=== PATIENT | male | born 1940 | race Caucasian/White ===

== ENCOUNTER 2017-08-13 19:27 | Inpatient (IN) | payer MEDICARE, OTHER ==
[~2017-08-13] VITALS: Ht 193 cm; Wt 82.6 kg
[2017-08-13] VITALS (7 sets, daily range): BP systolic 129–147; BP diastolic 58–66; PULSE 101–119; RESP 20–22; TEMP 97.7; O2SAT 96–97
[~2017-08-13 19:27] MED LIST: ASPI325T10 PO; DILT180C PO; METF500 PO; MULT-65 PO; MULT1TAB46 PO; PERC7.5T13 PO; PRAV40TA2 PO; PRED5TAB PO; RAPA8CAP PO; ROPI0.5T PO; SOMA350T PO
[2017-08-13] MEDS: SODIUM CHLOR 0.9% 1000 ML INJ 1,000 ML IV SCH ×2 (20:00→21:53)
[2017-08-13] MEDS ORDERED: SODIUM CHLORIDE 0.9% FLUSH 10 ML FLUSH IV FLUSH PRN ×2 (20:00→22:15)
--- NOTE | 2017-08-13 20:04 | PD ---
HPI Chief Complaint: GI Complaint Time Seen by Provider: 19:56 Travel History International Travel<30 days: No Contact w/Intl Traveler<30days: No Traveled to known affect area: No History of Present Illness HPI The patient is a 77-year-old male that complains of nausea, vomiting and diarrhea since his immune therapy on Monday. He does have a history of stage IV bladder cancer. He has had his bladder removed in 2015. He does feel dehydrated. He is not sure whether or not he is passed any blood in the stool. His last vomiting was 24 hours ago but he is still nauseated. Apparently, the patient was evaluated at [facility] and found not to be a surgical candidate and found not to be a radiation therapy candidate. PFSH Past Medical History Atrial Fibrillation: Yes Cancer: Yes (BLADDER) Cardiovascular Problems: No High Cholesterol: Yes Chemotherapy: Yes Diabetes: Yes Diminished Hearing: No Endocrine: No Genitourinary: Yes (BLADDER CA) Hepatitis: No Hiatal Hernia: No Immune Disorder: No Musculoskeletal: Yes ([place]) Neurologic: No Psychiatric: No Reproductive: No Respiratory: No Immunizations Current: Yes Radiation Therapy: Yes Thyroid Disease: No Past Surgical History Abdominal Surgery: No AICD: No Body Medical Devices: N/A Cardiac Surgery: No Ear Surgery: No Endocrine Surgery: No Eye Surgery: Yes (CATARACTS) Genitourinary Surgery: Yes (BLADDER) Gynecologic Surgery: No Joint Replacement: No Oral Surgery: No Pacemaker: No Thoracic Surgery: No Social History Alcohol Use: Yes (3 GLASSES WINE DAILY) Tobacco Use: No (QUIT 1984) Substance Use: No Allergies-Medications (Allergen,Severity, Reaction): Coded Allergies: No Known Allergies (Unverified Adverse Reaction, Unknown, 08/13/17) Reported Meds & Prescriptions Reported Meds & Active Scripts Active Review of Systems Except as stated in HPI: all other systems reviewed are Neg Physical Exam Narrative GENERAL: The patient is at least moderately dehydrated, alert, oriented 3 in moderate apparent distress with his abdominal discomfort. His vital signs show heart rate of 119 with respirations 22 but otherwise normal. SKIN: Focused skin assessment warm/dry. HEAD: Atraumatic. Normocephalic. EYES: Pupils equal and round. No scleral icterus. No injection or drainage. ENT: No nasal bleeding or discharge. Mucous membranes pink and moist. NECK: Trachea midline. No JVD. CARDIOVASCULAR: Regular rate and rhythm. No murmur appreciated. RESPIRATORY: No accessory muscle use. Clear to auscultation. Breath sounds equal bilaterally. GASTROINTESTINAL: Abdomen soft, non-tender, nondistended. Hepatic and splenic margins not palpable. No guarding or rebound is present. MUSCULOSKELETAL: No obvious deformities. No clubbing. No cyanosis. No edema. NEUROLOGICAL: Awake and alert. No obvious cranial nerve deficits. Motor grossly within normal limits. Normal speech. PSYCHIATRIC: Appropriate mood and affect; insight and judgment normal. Data Data Last Documented VS Vital Signs Date Time Temp Pulse Resp B/P (MAP) Pulse Ox O2 Delivery O2 Flow Rate FiO2 08/13/17 22:39 105 20 147/66 (93) 97 08/13/17 20:32 Room Air 08/13/17 19:36 97.7 Orders Orders Complete Blood Count With Diff (08/13/17 19:57) Comprehensive Metabolic Panel (08/13/17 19:57) Lipase (08/13/17 19:57) Urinalysis - C+S If Indicated (08/13/17 19:57) Iv Access Insert/Monitor (08/13/17 19:57) Ecg Monitoring (08/13/17 19:57) Oximetry (08/13/17 19:57) Sodium Chloride 0.9% Flush (Ns Flush) (08/13/17 20:00) Sodium Chlor 0.9% 1000 Ml Inj (Ns 1000 M (08/13/17 20:00) Urine Culture (08/13/17 20:25) Ct Abd/Pel W/O Iv Contrast (08/13/17 19:57) Lorazepam Inj (Ativan Inj) (08/13/17 21:45) Place In Observation (08/13/17 ) Vital Signs (Adult) Q4H (08/13/17 22:15) Activity Oob With Assistance (08/13/17 22:15) Bedside Glucose BALJINDER.CSUGAR (08/13/17 22:15) Intake + Output BALJINDER.QSHIFT (08/13/17 22:15) Diet Regular Basic (08/14/17 Breakfast) Sodium Chlor 0.9% 1000 Ml Inj (Ns 1000 M (08/13/17 22:15) Sodium Chloride 0.9% Flush (Ns Flush) (08/13/17 22:15) Sodium Chloride 0.9% Flush (Ns Flush) (08/14/17 09:00) Acetaminophen (Tylenol) (08/13/17 22:15) Ondansetron Inj (Zofran Inj) (08/13/17 22:15) Metoclopramide Inj (Reglan Inj) (08/13/17 22:15) Prochlorperazine Supp (Compazine Supp) (08/13/17 22:15) Basic Metabolic Panel (Bmp) (08/14/17 06:00) Complete Blood Count With Diff (08/14/17 06:00) Case Management Consult (08/13/17 22:15) Enoxaparin Inj (Lovenox Inj) (08/13/17 23:00) Naloxone Inj (Narcan Inj) (08/13/17 22:15) Docusate Sodium-Senna (Merna-Colace) (08/14/17 09:00) Magnesium Hydroxide Liq (Milk Of Magnesi (08/13/17 22:15) Sennosides (Senokot) (08/13/17 22:15) Bisacodyl Supp (Dulcolax Supp) (08/13/17 22:15) Lactulose Liq (Lactulose Liq) (08/13/17 22:15) Admit Order (Ed Use Only) (08/13/17 22:40) Labs Laboratory Tests Test 08/13/17 20:25 White Blood Count 12.8 TH/MM3 Red Blood Count 3.13 MIL/MM3 Hemoglobin 8.9 GM/DL Hematocrit 26.9 % Mean Corpuscular Volume 86.0 FL Mean Corpuscular Hemoglobin 28.5 PG Mean Corpuscular Hemoglobin Concent 33.1 % Red Cell Distribution Width 14.9 % Platelet Count 448 TH/MM3 Mean Platelet Volume 6.9 FL Neutrophils (%) (Auto) 83.7 % Lymphocytes (%) (Auto) 7.0 % Monocytes (%) (Auto) 8.8 % Eosinophils (%) (Auto) 0.4 % Basophils (%) (Auto) 0.1 % Neutrophils # (Auto) 10.7 TH/MM3 Lymphocytes # (Auto) 0.9 TH/MM3 Monocytes # (Auto) 1.1 TH/MM3 Eosinophils # (Auto) 0.1 TH/MM3 Basophils # (Auto) 0.0 TH/MM3 CBC Comment AUTO DIFF Differential Comment AUTO DIFF CONFIRMED Platelet Estimate NORMAL Platelet Morphology Comment NORMAL Red Cell Morphology Comment NORMAL Urine Color YELLOW Urine Turbidity SLIGHT Urine pH 6.0 Urine Specific [place] 1.012 Urine Protein 30 mg/dL Urine Glucose (UA) NEG mg/dL Urine Ketones NEG mg/dL Urine Occult Blood MOD Urine Nitrite NEG Urine Bilirubin NEG Urine Leukocyte Esterase LARGE Urine RBC 0-3 /hpf Urine WBC 20-24 /hpf Urine WBC Clumps OCC Urine Squamous Epithelial Cells 0-5 /hpf Urine Bacteria MANY /hpf Urine Mucus OCC /lpf Microscopic Urinalysis Comment CULTURE INDICATED Blood Urea Nitrogen 73 MG/DL Creatinine 2.10 MG/DL Random Glucose 123 MG/DL Total Protein 7.7 GM/DL Albumin 3.0 GM/DL Calcium Level 8.9 MG/DL Alkaline Phosphatase 52 U/L Aspartate Amino Transf (AST/SGOT) 7 U/L Alanine Aminotransferase (ALT/SGPT) 17 U/L Total Bilirubin 0.3 MG/DL Sodium Level 136 MEQ/L Potassium Level 4.2 MEQ/L Chloride Level 107 MEQ/L Carbon Dioxide Level 18.9 MEQ/L Anion Gap 10 MEQ/L Estimat Glomerular Filtration Rate 31 ML/MIN Lipase 233 U/L [facility] Medical Decision Making Medical Screen Exam Complete: Yes Emergency Medical Condition: Yes Medical Record Reviewed: Yes Differential Diagnosis Immune therapy side effect, dehydration, electrolyte disorder, small bowel obstruction-unlikely, pancreatitis, gastroenteritis Narrative Course The patient may have a gastroenteritis. He does have dehydration. I discussed the patient with Dr. Martino. Dr. Martino longer practices at [place] but he suggested admitting the patient and giving him antiemetics and fluids and then when discharged, he can follow-up in Dr. Martino's office. It is unlikely that this is immune therapy side effect, this was his first dose. Physician Communication Physician Communication I discussed the patient with Dr. Corey, the patient will be admitted to her. I also discussed the patient with Dr. Martino. Diagnosis Primary Impression: Intractable vomiting with nausea Additional Impression: Moderate dehydration Admitting Information Admitting Physician Requests: Moy Syed MD Aug 13, 2017 20:04
[2017-08-13 20:31] LABS: BLOOD, URINE MOD (NEG); GLUCOSE,URINE NEG (NEG); KETONE, URINE NEG (NEG); NITRITE,URINE NEG (NEG)
[2017-08-13 20:36] LABS: URINE COLOR YELLOW (YELLW/STRAW)
[2017-08-13 20:37] LABS: BACTERIA, URINE MANY /hpf; RBC, URINE 0-3 /hpf (0-3); SQUAMOUS EPITHELIAL CELL URINE 0-5 /hpf (0-5)
[2017-08-13 20:38] LABS: CHLORIDE 107 MEQ/L (98-107); COMMENT (UR) CULTURE INDICATED; CULTURE IF INDICATED CULTURE INDICATED; MUCUS URINE OCC /lpf (OCC); POTASSIUM 4.2 MEQ/L (3.5-5.1); SODIUM (NA) 136 MEQ/L (136-145)
[2017-08-13 20:42] LABS: ANION GAP 10 MEQ/L (5-15); BICARBONATE 18.9 MEQ/L (21.0-32.0); BLOOD UREA NITROGEN 73 MG/DL (7-18)
[2017-08-13 20:45] LABS: ALT (GPT) 17 U/L (12-78); AST (GOT) 7 U/L (15-37); AUTOMATED NEUTROPHIL # 10.7 TH/MM3 (1.8-7.7); BASOPHIL % 0.1 % (0.0-2.0); EOSINOPHIL # 0.1 TH/MM3 (0-0.4); EOSINOPHIL % 0.4 % (0.0-4.0); GLOMERULAR FILTRATION RATE 31 ML/MIN (>89); HEMATOCRIT 26.9 % (39.0-51.0); LYMPHOCYTE # 0.9 TH/MM3 (1.0-4.8); MEAN CORPUSCULAR HEMOGLOBIN 28.5 PG (27.0-34.0); MEAN CORPUSCULAR HGB CONC 33.1 % (32.0-36.0); MONO % 8.8 % (0.0-8.0); NEUT % 83.7 % (16.0-70.0); PLATELET COUNT 448 TH/MM3 (150-450); RED BLOOD COUNT 3.13 MIL/MM3 (4.50-5.90); RED CELL DISTRIBUTION WIDTH 14.9 % (11.6-17.2); WHITE BLOOD COUNT 12.8 TH/MM3 (4.0-11.0)
[2017-08-13 20:46] LABS: TOTAL BILIRUBIN ADULT 0.3 MG/DL (0.2-1.0)
[2017-08-13 20:48] LABS: ALKALINE PHOSPHATASE 52 U/L (45-117)
[2017-08-13 20:51] LABS: HEMO FLAGS AUTO DIFF
[2017-08-13 21:16] LABS: PLATELET ESTIMATE SMEAR NORMAL (NORMAL); PLATELET MORPHOLOGY NORMAL (NORMAL); SCAN/DIFF AUTO DIFF CONFIRMED
--- NOTE | 2017-08-13 21:43 | RADRPT ---
EXAM DATE/TIME: 08/13/2017 21:04 [facility] COMPARISON: No previous studies available for comparison. INDICATIONS : Nausea. Vomiting. Diarrhea. ORAL CONTRAST: No oral contrast ingested. RADIATION DOSE: 11.31 CTDIvol (mGy) MEDICAL HISTORY : Renal insufficiency. Carcinoma, bladder. Diabetes mellitus type 2.Hypertension. SURGICAL HISTORY : Urostomy. ENCOUNTER: Initial ACUITY: 2 days PAIN SCALE: 2/10 LOCATION: Bilateral abdomen. TECHNIQUE: Volumetric scanning of the abdomen and pelvis was performed. Using automated exposure control and ad justment of the mA and/or kV according to patient size, radiation dose was kept as low as reasonably achievable to obtain optimal diagnostic quality images. DICOM format image data is available electro nically for review and comparison. FINDINGS: LOWER LUNGS: There is a 5 mm nodule in the right lower lobe. LIVER: Homogeneous density without lesion. There is no dilation of the biliary tree. No calcified gallston es. SPLEEN: Normal size without lesion. PANCREAS: Within normal limits. KIDNEYS: Normal in size and shape. There is no mass or stone. There is fullness of the collecting systems sadie aterally with bilateral hydroureter extending to the right lower quadrant urinary conduit. ADRENAL GLANDS: Within normal limits. VASCULAR: There is no aortic aneurysm. There is severe atherosclerotic disease. BOWEL/MESENTERY: A small hiatal hernia is present. The small bowel demonstrates no acute finding. Stable line is prese nt in the mid to distal small bowel. There is a large volume of stool throughout the colon area and a bnormal soft tissue density masslike structure is present in the right pelvis abutting the anterior a nd right lateral lott of the upper rectum and abutting the sigmoid colon and right obturator internu s. This measures at least 5.6 x 3.7 cm. Additionally, there appears to be fistulous connections betwe en segments of the sigmoid colon and the rectum. No free air or free fluid. ABDOMINAL WALL: There is a right lower quadrant urinary conduit with associated small fat containing peristomal herni a. A small periumbilical fat containing hernia is also present. RETROPERITONEUM: There is no lymphadenopathy. BLADDER: Surgically absent. REPRODUCTIVE: Surgically absent. INGUINAL: There is no lymphadenopathy or significant hernia. MUSCULOSKELETAL: There are degenerative changes of the lumbar spine. No lytic or blastic lesion. CONCLUSION: 1. Abnormal soft tissue mass in the inferior right pelvis measuring at least 5.6 cm. It abuts the rec carter, sigmoid colon, and right obturator internus. This is associated with a fistulous connection betw een the sigmoid colon and rectum. This finding could represent a local recurrence or metastatic disea se related to the patient's known bladder cancer. Additionally, it could be sequela from this prior i nflammatory process or surgery. Correlating with prior studies would be helpful. Some of this tissue is amenable to percutaneous biopsy if histologic diagnosis is needed. 2. There is a 6 mm nodule in the right lower lobe. Suggest correlating with any prior imaging studies . Ishaan Robles MD on August 13, 2017 at 21:32 Board Certified Radiologist. This report was verified electronically.
[2017-08-13] MEDS ORDERED: LORazepam 2 MG/ML VIAL IV PUSH ONE (21:45)
[2017-08-13] MEDS ORDERED: NALOXONE HCL 0.4 MG/ML AMP IV PUSH PRN (22:15)
[2017-08-13] MEDS ORDERED: ACETAMINOPHEN 325 MG TAB PO PRN (22:15)
[2017-08-13] MEDS ORDERED: LACTULOSE SYRUP 20 GM/30 ML CUP PO PRN (22:15)
[2017-08-13] MEDS ORDERED: MAGNESIUM HYDROXIDE SUSP 30 ML CUP PO PRN (22:15)
[2017-08-13] MEDS ORDERED: ONDANSETRON HCL 4 MG/2 ML VIAL IVP PRN (22:15)
[2017-08-13] MEDS ORDERED: PROCHLORPERAZINE 25 MG SUPP RECTAL PRN (22:15)
[2017-08-13] MEDS ORDERED: BISACODYL 10 MG SUPP RECTAL PRN (22:15)
[2017-08-13] MEDS ORDERED: SENNOSIDES 8.6 MG TAB PO PRN (22:15)
[2017-08-13] MEDS ORDERED: METOCLOPRAMIDE HCL 10 MG/2 ML VIAL IV PUSH PRN (22:15)
[2017-08-14] MEDS: SODIUM CHLOR 0.9% 1000 ML INJ 1,000 ML IV SCH ×3 (01:14→18:47)
[2017-08-14] MEDS: ENOXAPARIN SODIUM 30 MG/0.3 ML SYRINGE SQ SCH ×2 (01:36→21:37)
[2017-08-14 06:18] LABS: AUTOMATED NEUTROPHIL # 8.3 TH/MM3 (1.8-7.7); BASOPHIL % 0.2 % (0.0-2.0); EOSINOPHIL # 0.1 TH/MM3 (0-0.4); EOSINOPHIL % 0.5 % (0.0-4.0); HEMATOCRIT 24.6 % (39.0-51.0); HEMO FLAGS DIFF FINAL; LYMPH % 10.1 % (9.0-44.0); LYMPHOCYTE # 1.1 TH/MM3 (1.0-4.8); MEAN CELL VOLUME 87.1 FL (80.0-100.0); MEAN CORPUSCULAR HEMOGLOBIN 28.3 PG (27.0-34.0); MEAN CORPUSCULAR HGB CONC 32.5 % (32.0-36.0); MONO % 10.8 % (0.0-8.0); NEUT % 78.4 % (16.0-70.0); PLATELET COUNT 396 TH/MM3 (150-450); RED BLOOD COUNT 2.83 MIL/MM3 (4.50-5.90); RED CELL DISTRIBUTION WIDTH 14.8 % (11.6-17.2); WHITE BLOOD COUNT 10.6 TH/MM3 (4.0-11.0)
[2017-08-14 06:24] LABS: BICARBONATE 18.6 MEQ/L (21.0-32.0); POTASSIUM 4.7 MEQ/L (3.5-5.1)
[2017-08-14] MEDS: DOCUSATE SODIUM 50 MG/SENNA 8.6 MG TAB PO SCH ×2 (07:40→21:30)
[2017-08-14] MEDS: SODIUM CHLORIDE 0.9% FLUSH 10 ML FLUSH IV FLUSH SCH ×2 (07:41→21:29)
[2017-08-14 08:00] VITALS: BP 148/65; PULSE 110; RESP 14; TEMP 98.7; O2SAT 95
--- NOTE | 2017-08-14 09:38 | HHI.HP ---
HPI Service [facility] Primary Care Physician Sandor Atkins M.D. Admission Diagnosis intractable vomiting, moderate dehydration Diagnoses: Chief Complaint: N/V/D Travel History International Travel<30 Days: No Contact w/Intl Traveler <30 Da: No Traveled to Known Affected Are: No History of Present Illness 77-year-old white male who was admitted for dehydration secondary to gastroenteritis. Patient was in his usual state of health until about 3 days ago 2 hours after his first chemotherapy session he developed nausea vomiting and loose stools. states that his symptoms persisted for a whole 3 days and then decided to bring to the emergency room last night. Patient denies being on antibiotics in the last 3 months. thinks that he is slightly confused. Since admission, the patient has still had multiple bowel movements that are "runny". However his states that he was able to eat his breakfast this morning which is an improvement. Patient reports having some mild abdominal discomfort. He does have a history of bladder cancer with a urostomy, no changes in urinary output consistency per patient and . Patient handles the urostomy changes himself. Pt denies any kaye fevers or cold sweats. Review of Systems Except as stated in HPI: all other systems reviewed are Neg Past Family Social History Past Medical History Polymyalgia, bladder cancer, Past Surgical History Bladder cancer, urostomy, cataract surgery Allergies: Coded Allergies: No Known Allergies (Unverified Adverse Reaction, Unknown, 08/13/17) Family History Hypertension Social History Previous smoking history up until 1984, drinks alcohol daily up to 3 glasses of wine, denies illicit drug use per records Physical Exam Vital Signs Vital Signs Date Time Temp Pulse Resp B/P (MAP) Pulse Ox O2 Delivery O2 Flow Rate FiO2 08/13/17 23:56 108 20 146/63 (90) 96 08/13/17 23:55 97.7 101 20 129/60 (83) 96 08/13/17 22:39 105 20 147/66 (93) 97 08/13/17 21:03 106 20 145/63 (90) 97 08/13/17 20:32 96 Room Air 08/13/17 19:59 113 20 138/58 (84) 97 Room Air 08/13/17 19:36 97.7 119 22 134/63 (86) 96 Physical Exam VS: Afebrile GENERAL: Elderly white male, well-nourished, lying in bed, awake, alert, no acute distress SKIN: Warm and dry. EYES: No scleral icterus. No injection or drainage. ENT: No nasal bleeding or discharge. Mucous membranes pink and moist. CARDIOVASCULAR: Regular rate and rhythm. no murmurs RESPIRATORY: No accessory muscle use. Clear to auscultation. Breath sounds equal bilaterally. GASTROINTESTINAL: Abdomen soft, non-tender, nondistended. Has a urostomy bag on his right side with normal colored urine, no gross hematuria noted. Extremities: No clubbing, cyanosis, or edema. No obvious deformities. MUSCULOSKELETAL: Extremities without clubbing, cyanosis, or edema. No obvious deformities. grossly intact ROM with 5/5 strength in upper and lower extremities proximally NEUROLOGICAL: Awake and alert. No obvious cranial nerve deficits. No facial droop nor slurred speech noted. PSYCHIATRIC: Appropriate mood and affect; insight and judgment normal. Is oriented to person and place, only partially oriented to time but eventually does get the day of the week and month right, off by 3 years. Understands that he is hospitalized for his symptoms. Laboratory Laboratory Tests Test 08/13/17 20:25 08/14/17 04:53 White Blood Count 12.8 10.6 Red Blood Count 3.13 2.83 Hemoglobin 8.9 8.0 Hematocrit 26.9 24.6 Mean Corpuscular Volume 86.0 87.1 Mean Corpuscular Hemoglobin 28.5 28.3 Mean Corpuscular Hemoglobin Concent 33.1 32.5 Red Cell Distribution Width 14.9 14.8 Platelet Count 448 396 Mean Platelet Volume 6.9 7.3 Neutrophils (%) (Auto) 83.7 78.4 Lymphocytes (%) (Auto) 7.0 10.1 Monocytes (%) (Auto) 8.8 10.8 Eosinophils (%) (Auto) 0.4 0.5 Basophils (%) (Auto) 0.1 0.2 Neutrophils # (Auto) 10.7 8.3 Lymphocytes # (Auto) 0.9 1.1 Monocytes # (Auto) 1.1 1.1 Eosinophils # (Auto) 0.1 0.1 Basophils # (Auto) 0.0 0.0 CBC Comment AUTO DIFF DIFF FINAL Differential Comment AUTO DIFF CONFIRMED Platelet Estimate NORMAL Platelet Morphology Comment NORMAL Red Cell Morphology Comment NORMAL Urine Color YELLOW Urine Turbidity SLIGHT Urine pH 6.0 Urine Specific [place] 1.012 Urine Protein 30 Urine Glucose (UA) NEG Urine Ketones NEG Urine Occult Blood MOD Urine Nitrite NEG Urine Bilirubin NEG Urine Leukocyte Esterase LARGE Urine RBC 0-3 Urine WBC 20-24 Urine WBC Clumps OCC Urine Squamous Epithelial Cells 0-5 Urine Bacteria MANY Urine Mucus OCC Microscopic Urinalysis Comment CULTURE INDICATED Blood Urea Nitrogen 73 55 Creatinine 2.10 1.50 Random Glucose 123 97 Total Protein 7.7 Albumin 3.0 Calcium Level 8.9 8.5 Alkaline Phosphatase 52 Aspartate Amino Transf (AST/SGOT) 7 Alanine Aminotransferase (ALT/SGPT) 17 Total Bilirubin 0.3 Sodium Level 136 143 Potassium Level 4.2 4.7 Chloride Level 107 115 Carbon Dioxide Level 18.9 18.6 Anion Gap 10 9 Estimat Glomerular Filtration Rate 31 46 Lipase 233 Date/Time Source Procedure Growth Status 08/13/17 20:25 Urine Clean Catch Urine Culture Pending Received Result Diagram: 08/14/17 0453 08/14/17 0453 Caprini VTE Risk Assessment Caprini VTE Risk Assessment: Mod/High Risk (score >= 2) Caprini Risk Assessment Model Point Value = 1 Point Value = 2 Point Value = 3 Point Value = 5 Age 41-60 Minor surgery BMI > 25 kg/m2 Swollen legs Varicose veins or History of unexplained or recurrent spontaneous Oral contraceptives or hormone replacement Sepsis (< 1 month) Serious lung disease, including pneumonia (< 1 month) Abnormal pulmonary function Acute myocardial infarction Congestive heart failure (< 1 month) History of inflammatory bowel disease Medical patient at bed rest Age 61-74 Arthroscopic surgery Major open surgery (> 45 min) Laparoscopic surgery (> 45 min) Malignancy Confined to bed (> 72 hours) Immobilizing plaster cast Central venous access Age >= 75 History of VTE Family history of VTE Factor V Leiden Prothrombin [id number] Lupus anticoagulant Anticardiolipin antibodies Elevated serum homocysteine Heparin-induced thrombocytopenia Other congenital or acquired thrombophilia Stroke (< 1 month) Elective arthroplasty Hip, pelvis, or leg fracture Acute spinal cord injury (< 1 month) Prophylaxis Regimen Total Risk Factor Score Risk Level Prophylaxis Regimen 0-1 Low Early ambulation 2 Moderate Order ONE of the following: *Sequential Compression Device (SCD) *Heparin 5000 units SQ BID 3-4 Higher Order ONE of the following medications: *Heparin 5000 units SQ TID *Enoxaparin/Lovenox 40 mg SQ daily (WT < 150 kg, CrCl > 30 mL/min) *Enoxaparin/Lovenox 30 mg SQ daily (WT < 150 kg, CrCl > 10-29 mL/min) *Enoxaparin/Lovenox 30 mg SQ BID (WT < 150 kg, CrCl > 30 mL/min) AND/OR *Sequential Compression Device (SCD) 5 or more Highest Order ONE of the following medications: *Heparin 5000 units SQ TID (Preferred with Epidurals) *Enoxaparin/Lovenox 40 mg SQ daily (WT < 150 kg, CrCl > 30 mL/min) *Enoxaparin/Lovenox 30 mg SQ daily (WT < 150 kg, CrCl > 10-29 mL/min) *Enoxaparin/Lovenox 30 mg SQ BID (WT < 150 kg, CrCl > 30 mL/min) AND *Sequential Compression Device (SCD) Assessment and Plan Assessment and Plan Nausea vomiting diarrhea - Most likely viral gastroenteritis with a partial component of chemotherapy although that is unlikely at this point - Checking C. difficile, if negative will proceed with Imodium - Diet as tolerated, Zofran as needed for nausea SERA - Improving since admission, trend renal function, may consider discontinuing IV fluids if by mouth intake is adequate Physician Certification 2 Midnight Certification Type: Admission for Inpatient Services Order for Inpatient Services The services are ordered in accordance with Medicare regulations or non- Medicare payer requirements, as applicable. In the case of services not specified as inpatient-only, they are appropriately provided as inpatient services in accordance with the 2-midnight benchmark. Estimated LOS (days): 2 2 days is the estimated time the patient will need to remain in the hospital, assuming treatment plan goals are met and no additional complications. Post-Hospital Plan: Home Jareth Trivedi MD Aug 14, 2017 09:37
[2017-08-14] MEDS ORDERED: ONDANSETRON HCL 4 MG/2 ML VIAL IV PUSH PRN (09:45)
[2017-08-14 12:00] VITALS: BP 143/67; PULSE 101; RESP 14; TEMP 97.1; O2SAT 97
[2017-08-14 16:00] VITALS: BP 141/67; PULSE 101; RESP 16; TEMP 98.5; O2SAT 96
[2017-08-14 20:00] VITALS: BP 138/64; PULSE 96; RESP 18; TEMP 97.5; O2SAT 97
[2017-08-14] MEDS ORDERED: ENOXAPARIN SODIUM 30 MG/0.3 ML SYRINGE SQ SCH (20:00)
[2017-08-15] VITALS: BP 140/62; PULSE 94; RESP 18; TEMP 98.9; O2SAT 97
[2017-08-15] MEDS ORDERED: LORazepam 1 MG TAB PO PRN (01:45)
[2017-08-15] MEDS ORDERED: LORazepam 2 MG TAB PO PRN (01:45)
[2017-08-15] MEDS ORDERED: LORazepam 2 MG/ML VIAL IV PUSH PRN ×3 (01:45)
[2017-08-15] MEDS ORDERED: FLUMAZENIL 0.5 MG/5 ML VIAL IV PUSH PRN (01:45)
[2017-08-15] MEDS: LORazepam 2 MG/ML VIAL IV PUSH PRN ×2 (02:40→12:21)
[2017-08-15 06:38] LABS: AUTOMATED NEUTROPHIL # 7.4 TH/MM3 (1.8-7.7); BASOPHIL # 0.1 TH/MM3 (0-0.2); BASOPHIL % 0.8 % (0.0-2.0); EOSINOPHIL # 0.1 TH/MM3 (0-0.4); EOSINOPHIL % 0.6 % (0.0-4.0); HEMATOCRIT 25.5 % (39.0-51.0); LYMPH % 11.4 % (9.0-44.0); LYMPHOCYTE # 1.1 TH/MM3 (1.0-4.8); MEAN CELL VOLUME 87.1 FL (80.0-100.0); MEAN CORPUSCULAR HEMOGLOBIN 27.6 PG (27.0-34.0); MEAN CORPUSCULAR HGB CONC 31.7 % (32.0-36.0); NEUT % 76.2 % (16.0-70.0); PLATELET COUNT 432 TH/MM3 (150-450); RED BLOOD COUNT 2.92 MIL/MM3 (4.50-5.90); RED CELL DISTRIBUTION WIDTH 14.8 % (11.6-17.2); WHITE BLOOD COUNT 9.8 TH/MM3 (4.0-11.0)
[2017-08-15 06:41] LABS: HEMO FLAGS DIFF FINAL
[2017-08-15 07:39] LABS: MAGNESIUM 2.2 MG/DL (1.5-2.5); POTASSIUM 3.9 MEQ/L (3.5-5.1)
[2017-08-15 08:00] VITALS: BP 160/72; PULSE 90; RESP 20; TEMP 97.4
[2017-08-15] MEDS ORDERED: FOLIC ACID 1 MG TAB PO SCH (09:00)
[2017-08-15] MEDS ORDERED: THIAMINE HCL 100 MG TAB PO SCH (09:00)
[2017-08-15] MEDS ORDERED: MULTIVITAMINS/MINERALS THERAPEUTIC TAB PO SCH (09:00)
[2017-08-15] MEDS: DOCUSATE SODIUM 50 MG/SENNA 8.6 MG TAB PO SCH (09:00)
[2017-08-15] MEDS: SODIUM CHLORIDE 0.9% FLUSH 10 ML FLUSH IV FLUSH SCH ×2 (09:11→20:24)
[2017-08-15] MEDS: SODIUM CHLOR 0.9% 1000 ML INJ 1,000 ML IV SCH ×2 (09:21→14:15)
[2017-08-15 11:42] VITALS: BP 160/74; PULSE 102; RESP 20; TEMP 99.2; O2SAT 98
[2017-08-15] MEDS: cefTRIAXone INJ 1,000 MG in SODIUM CHLORIDE 0.9% INJ 100 ML IV SCH (13:18)
[2017-08-15 16:00] VITALS: BP 181/79; PULSE 99; RESP 20; TEMP 101; O2SAT 98
--- NOTE | 2017-08-15 17:03 | HHI.PR ---
Subjective Remarks Patient has been confused, has tried to get out of bed multiple times and was placed in soft restraints. Nurse tells me that his girlfriend at bedside is untied to soft restraints several times and has been counseled by nursing staff not to do so. I discussed further history with the patient's girlfriend at bedside. Patient apparently got his first dose of chemotherapy last Monday and has been confused since then. He does not have good balance at baseline and has a walker but does not use it. He grabs onto furniture to help him with his balance at home. Normally he is alert and oriented so that the confusion is a departure from baseline for him. Patient himself denies any pain. He has had numerous loose stools today. No nausea or vomiting. Objective Vitals Vital Signs Date Time Temp Pulse Resp B/P (MAP) Pulse Ox O2 Delivery O2 Flow Rate FiO2 08/15/17 16:00 101.0 99 20 181/79 (113) 98 08/15/17 11:42 99.2 102 20 160/74 (102) 98 08/15/17 08:00 97.4 90 20 160/72 (101) 08/15/17 00:00 98.9 94 18 140/62 (88) 97 08/14/17 20:00 97.5 96 18 138/64 (88) 97 I/O 08/14/17 08/14/17 08/14/17 08/15/17 08/15/17 08/15/17 07:00 15:00 23:00 07:00 15:00 23:00 Intake Total 684 ml 222 ml 1180 ml 2420 ml Output Total 1250 ml 350 ml 350 ml 600 ml 650 ml Balance -566 ml -128 ml -350 ml 580 ml 1770 ml Intake Oral 240 ml 222 ml 680 ml 920 ml IV Total 444 ml 500 ml 1500 ml Output Urine Total 1250 ml 350 ml 350 ml 600 ml 650 ml # Voids 2 1 4 # Bowel Movements 6 4 4 3 5 2 Result Diagram: 08/15/1744908/15/17449 Objective Remarks GENERAL: Chronically ill-appearing elderly male laying in bed in no apparent distress. SKIN: Warm and dry. HEAD: Normocephalic. EYES: No scleral icterus. No injection or drainage. NECK: Supple, trachea midline. No JVD or lymphadenopathy. CARDIOVASCULAR: Regular rate and rhythm without murmurs, gallops, or rubs. RESPIRATORY: Breath sounds equal bilaterally. No accessory muscle use. GASTROINTESTINAL: Abdomen soft, non-tender, nondistended. EXTREMITIES: No cyanosis, or edema. NEUROLOGICAL: Awake, alert, and oriented only to self. Confused. Non-focal. A/P Assessment and Plan -Diarrhea, fever, vomiting as well in a patient with stage IV bladder cancer received first dose of chemotherapy last Monday - patient's oncologist is Dr. Martino. CT shows soft tissue mass in the inferior right pelvis measuring 5.6 cm and there is a fistulous connection between the sigmoid colon and the rectum. Patient has a urostomy. Urinalysis is abnormal on culture grew Escherichia coli. Continue Rocephin IV. Start Flagyl IV. Check C. difficile. No further vomiting since admission but he continues to have copious loose stools. I will touch base with his oncologist tomorrow. -Acute metabolic encephalopathy. Confusion since his first dose of chemotherapy last Monday. Continue soft restraints. If does not improve we'll need to check head CT. -Acute kidney injury, improving with IV fluid hydration. -Escherichia coli UTI continue Rocephin. -DVT px - SCDs Maci Beatty MD Aug 15, 2017 17:03
[2017-08-15 20:00] VITALS: BP 172/76; PULSE 87; RESP 18; TEMP 96.6; O2SAT 94
[2017-08-15] MEDS: ENOXAPARIN SODIUM 30 MG/0.3 ML SYRINGE SQ SCH (23:00)
[2017-08-16] VITALS: BP 176/72; PULSE 90; RESP 18; TEMP 97.7; O2SAT 96
[2017-08-16] MEDS ORDERED: HALOPERIDOL LACTATE 5 MG/ML AMP IM ONE (02:00)
--- NOTE | 2017-08-16 03:43 | RADRPT ---
EXAM DATE/TIME: 08/16/2017 02:56 [facility] COMPARISON: No previous studies available for comparison. INDICATIONS : Altered mental status. RADIATION DOSE: 58.25 CTDIvol (mGy) MEDICAL HISTORY : Hypertension. Diabetes mellitus type 2. Carcinoma, bladder. SURGICAL HISTORY : Urostomy. ENCOUNTER: Initial ACUITY: 1 day PAIN SCALE: 0/10 LOCATION: cranial TECHNIQUE: Multiple contiguous axial images were obtained of the head. Using automated exposure control and adj ustment of the mA and/or kV according to patient size, radiation dose was kept as low as reasonably a chievable to obtain optimal diagnostic quality images. DICOM format image data is available electro nically for review and comparison. FINDINGS: CEREBRUM: The ventricles are normal for age. No evidence of midline shift, mass lesion, hemorrhage or acute in farction. No extra-axial fluid collections are seen. POSTERIOR FOSSA: The cerebellum and brainstem are intact. The 4th ventricle is midline. The cerebellopontine angle i s unremarkable. EXTRACRANIAL: The visualized portion of the orbits is intact. SKULL: The calvaria is intact. No evidence of skull fracture. CONCLUSION: Normal examination. Gio Catalan MD on August 16, 2017 at 3:42 Board Certified Radiologist. This report was verified electronically.
[2017-08-16 05:17] LABS: C. DIFF EPI 027 PRESUMPTIVE NEGATIVE (NEGATIVE)
[2017-08-16 07:50] VITALS: BP 151/67; PULSE 95; RESP 20; TEMP 97.7; O2SAT 97
[2017-08-16 08:56] LABS: AUTOMATED NEUTROPHIL # 9.5 TH/MM3 (1.8-7.7); EOSINOPHIL % 0.4 % (0.0-4.0); HEMATOCRIT 26.8 % (39.0-51.0); LYMPH % 7.1 % (9.0-44.0); LYMPHOCYTE # 0.8 TH/MM3 (1.0-4.8); MEAN CELL VOLUME 87.1 FL (80.0-100.0); MEAN CORPUSCULAR HEMOGLOBIN 27.7 PG (27.0-34.0); MEAN CORPUSCULAR HGB CONC 31.8 % (32.0-36.0); MONO % 8.5 % (0.0-8.0); PLATELET COUNT 466 TH/MM3 (150-450); RED BLOOD COUNT 3.08 MIL/MM3 (4.50-5.90); RED CELL DISTRIBUTION WIDTH 15.1 % (11.6-17.2); WHITE BLOOD COUNT 11.2 TH/MM3 (4.0-11.0)
[2017-08-16 09:04] LABS: HEMO FLAGS DIFF FINAL
[2017-08-16 09:51] LABS: BICARBONATE 16.7 MEQ/L (21.0-32.0); POTASSIUM 3.8 MEQ/L (3.5-5.1)
[2017-08-16] MEDS: SODIUM CHLORIDE 0.9% FLUSH 10 ML FLUSH IV FLUSH SCH ×2 (10:35→20:37)
[2017-08-16] MEDS: metroNIDAZOLE 500 MG INJ 100 ML IV SCH ×2 (10:38→18:28)
--- NOTE | 2017-08-16 10:56 | HHI.PR ---
Subjective Remarks Patient less confused this morning. Contineus to have loose liquid stools. Denies pain or dyspnea. Did not sleep well last night. c dif negative. head ct obtained overnight - negative. Home meds reviewed with - apparently he takes percocet 10 (up to 2 at a time) AND lortab as well as ativan. D/w pts girlfriend at bedside that she should control his medications when patient confused, advised all three can cause confusion, recommend DC lortab, and use only 1 percocet at a time. Objective Vitals Vital Signs Date Time Temp Pulse Resp B/P (MAP) Pulse Ox O2 Delivery O2 Flow Rate FiO2 08/16/17 00:00 97.7 90 18 176/72 (106) 96 08/15/17 20:00 96.6 87 18 172/76 (108) 94 08/15/17 16:00 101.0 99 20 181/79 (113) 98 08/15/17 11:42 99.2 102 20 160/74 (102) 98 I/O 08/15/17 08/15/17 08/15/17 08/16/17 08/16/17 08/16/17 07:00 15:00 23:00 07:00 15:00 23:00 Intake Total 1180 ml 2420 ml 2 ml 240 ml Output Total 600 ml 650 ml Balance 580 ml 1770 ml 2 ml 240 ml Intake Oral 680 ml 920 ml 240 ml IV Total 500 ml 1500 ml 2 ml Output Urine Total 600 ml 650 ml # Voids 4 3 # Bowel Movements 3 5 2 9 Result Diagram: 08/16/17 0835 08/16/17 0835 Objective Remarks GENERAL: Chronically ill-appearing elderly male laying in bed in no apparent distress. SKIN: Warm and dry. HEAD: Normocephalic. EYES: No scleral icterus. No injection or drainage. NECK: Supple, trachea midline. No JVD or lymphadenopathy. CARDIOVASCULAR: Regular rate and rhythm without murmurs, gallops, or rubs. RESPIRATORY: Breath sounds equal bilaterally. No accessory muscle use. GASTROINTESTINAL: Abdomen soft, non-tender, nondistended. EXTREMITIES: No cyanosis, or edema. NEUROLOGICAL: Awake, alert, and oriented to self, place, month. mildly confused. Non-focal. A/P Assessment and Plan -Diarrhea, fever, vomiting as well in a patient with stage IV bladder cancer received first dose of chemotherapy last Monday - patient's oncologist is Dr. Martino. CT shows soft tissue mass in the inferior right pelvis measuring 5.6 cm and there is a fistulous connection between the sigmoid colon and the rectum. Patient has a urostomy. Continue Rocephin IV and Flagyl IV. C. difficile PCR negative. No further vomiting since admission but he continues to have copious loose stools. I discussed patient with his oncologist today - patient was recently seen at [facility] - he is not a candidate for further radiation or surgery - received first dose of immunotherapy last week - Dr. Martino does not think it would be responsible for the diarrhea, he will fax over recent records. -UTI - patient has urostomy. Urine culture grew Escherichia coli. cont rocephin. -Acute metabolic encephalopathy. Confusion since his first dose of chemotherapy last Monday. May be due to polypharmacy as well ( was taking ativan , percocet 10 mg up to 20 mg at a time, and lortab). Continue soft restraints. Avoid sedation medications. mentation improving today. Noncontrast head CT was negative. -Acute kidney injury, resolved with IV fluid hydration. will HLIV. -Escherichia coli UTI continue Rocephin. -DVT px - SCDs Maci Beatty MD Aug 16, 2017 10:56
[2017-08-16 11:50] VITALS: BP 147/65; PULSE 74; RESP 20; TEMP 97.4; O2SAT 100
[2017-08-16] MEDS: cefTRIAXone INJ 1,000 MG in SODIUM CHLORIDE 0.9% INJ 100 ML IV SCH (12:56)
[2017-08-16] MEDS ORDERED: ENALAPRILAT 1.25 MG/ML VIAL IV PUSH PRN (15:15)
[2017-08-16 15:50] VITALS: BP 137/65; PULSE 97; RESP 20; TEMP 96.8; O2SAT 99
[2017-08-16] MEDS ORDERED: AMOX875T2 PO (16:08)
[2017-08-16] MEDS ORDERED: PERC10TA27 PO (16:08)
[2017-08-16] MEDS ORDERED: LORA0.5T PO (16:08)
[2017-08-16] MEDS ORDERED: DEXA4TAB PO (16:11)
[2017-08-16] MEDS ORDERED: DIFL100T PO (16:16)
[2017-08-16] MEDS ORDERED: PROC10TA PO (16:19)
[2017-08-16] MEDS ORDERED: LOPERAMIDE HCL 2 MG CAP PO ONE (16:30)
[2017-08-16] MEDS ORDERED: MEGE40SU6 (16:49)
[2017-08-16] MEDS ORDERED: FENT50DI T-DERMAL (17:08)
[2017-08-16 20:00] VITALS: BP 147/67; PULSE 99; RESP 18; TEMP 98.7; O2SAT 98
[2017-08-16] MEDS: ENOXAPARIN SODIUM 30 MG/0.3 ML SYRINGE SQ SCH (23:08)
[2017-08-17] VITALS: BP 141/69; PULSE 95; RESP 17; TEMP 98.5; O2SAT 96
[2017-08-17] MEDS: metroNIDAZOLE 500 MG INJ 100 ML IV SCH ×3 (01:00→08:57)
[2017-08-17 06:50] LABS: AUTOMATED NEUTROPHIL # 8.7 TH/MM3 (1.8-7.7); BASOPHIL # 0.1 TH/MM3 (0-0.2); BASOPHIL % 0.7 % (0.0-2.0); EOSINOPHIL % 0.3 % (0.0-4.0); HEMATOCRIT 27.3 % (39.0-51.0); HEMO FLAGS DIFF FINAL; LYMPH % 11.9 % (9.0-44.0); LYMPHOCYTE # 1.3 TH/MM3 (1.0-4.8); MEAN CELL VOLUME 88.3 FL (80.0-100.0); MEAN CORPUSCULAR HEMOGLOBIN 28.3 PG (27.0-34.0); NEUT % 78.1 % (16.0-70.0); PLATELET COUNT 436 TH/MM3 (150-450); RED BLOOD COUNT 3.09 MIL/MM3 (4.50-5.90); RED CELL DISTRIBUTION WIDTH 15.4 % (11.6-17.2); WHITE BLOOD COUNT 11.1 TH/MM3 (4.0-11.0)
[2017-08-17 07:02] LABS: POTASSIUM 3.6 MEQ/L (3.5-5.1)
[2017-08-17 07:09] LABS: BICARBONATE 16.5 MEQ/L (21.0-32.0)
--- NOTE | 2017-08-17 07:29 | HHI.FF ---
Face to Face Verification Diagnosis: (1) Bladder cancer (2) Diarrhea (3) Acute metabolic encephalopathy Physical Therapy Order: Evaluate and Treat, Improve ambulation, Strength and gait training Home Health Nursing Order: Medical education Nursing assessment with vital signs I have seen patient Juan Foley on 08/17/17. My clinical findings support the need for the requested home health care services because: Deconditioned w/ increased weakness Need for psychosocial assistance I certify that my clinical findings support that this patient is homebound because: Unsteady gait/balance Need for psychosocial assistance Ayesha Bang Aug 17, 2017 07:29 Maci Beatty MD Aug 17, 2017 10:33
[2017-08-17 07:50] VITALS: BP 118/64; PULSE 104; RESP 20; TEMP 97.2; O2SAT 98
[2017-08-17] MEDS ORDERED: LOPERAMIDE HCL 2 MG CAP PO PRN (08:45)
[2017-08-17] MEDS ORDERED: LOPERAMIDE HCL 2 MG CAP PO ONE (08:45)
[2017-08-17] MEDS: SODIUM CHLORIDE 0.9% FLUSH 10 ML FLUSH IV FLUSH SCH (08:58)
[2017-08-17] MEDS ORDERED: TYLE325T PO (10:32)
[2017-08-17] MEDS ORDERED: CIPR500T2 PO (10:32)
[2017-08-17] MEDS ORDERED: PERC10TA27 PO (10:32)
[2017-08-17] MEDS ORDERED: LOPE2CAP2 PO (10:32)
[2017-08-17] MEDS ORDERED: METR1TAB76 PO (10:32)
[2017-08-17] MEDS ORDERED: LACTCHW3 CHEW (10:32)
--- NOTE | 2017-08-17 10:35 | HHI.DS ---
Discharge Summary Admission Date Aug 15, 2017 at 17:06 Discharge Date: Aug 17, 2017 Admitting Diagnosis intractable vomiting, moderate dehydration (1) Complicated UTI (urinary tract infection) ICD Code: N39.0 - Urinary tract infection, site not specified Status: Acute (2) Diarrhea ICD Code: R19.7 - Diarrhea, unspecified Status: Acute (3) Acute metabolic encephalopathy ICD Code: G93.41 - Metabolic encephalopathy Status: Resolved (4) Bladder cancer ICD Code: C67.9 - Malignant neoplasm of bladder, unspecified Status: Chronic (5) Vomiting ICD Code: R11.10 - Vomiting, unspecified Status: Resolved (6) Dehydration ICD Code: E86.0 - Dehydration Status: Resolved (7) Acute kidney injury ICD Code: N17.9 - Acute kidney failure, unspecified Status: Resolved (8) Malignant neoplasm metastatic from bladder ICD Code: C67.9 - Malignant neoplasm of bladder, unspecified Procedures none Brief History - From Admission 77-year-old white male who was admitted for dehydration secondary to gastroenteritis. Patient was in his usual state of health until about 3 days ago 2 hours after his first chemotherapy session he developed nausea vomiting and loose stools. states that his symptoms persisted for a whole 3 days and then decided to bring to the emergency room last night. Patient denies being on antibiotics in the last 3 months. thinks that he is slightly confused. Since admission, the patient has still had multiple bowel movements that are "runny". However his states that he was able to eat his breakfast this morning which is an improvement. Patient reports having some mild abdominal discomfort. He does have a history of bladder cancer with a urostomy, no changes in urinary output consistency per patient and . Patient handles the urostomy changes himself. Pt denies any kaye fevers or cold sweats. CBC/BMP: 08/17/17 0500 08/17/17 0500 Significant Findings Laboratory Tests Test 08/15/17 04:50 08/16/17 02:16 08/16/17 08:35 08/17/17 05:00 Red Blood Count 2.92 MIL/MM3 (4.50-5.90) 3.08 MIL/MM3 (4.50-5.90) 3.09 MIL/MM3 (4.50-5.90) Hemoglobin 8.1 GM/DL (13.0-17.0) 8.5 GM/DL (13.0-17.0) 8.7 GM/DL (13.0-17.0) Hematocrit 25.5 % (39.0-51.0) 26.8 % (39.0-51.0) 27.3 % (39.0-51.0) Mean Corpuscular Hemoglobin Concent 31.7 % (32.0-36.0) 31.8 % (32.0-36.0) Neutrophils (%) (Auto) 76.2 % (16.0-70.0) 84.0 % (16.0-70.0) 78.1 % (16.0-70.0) Monocytes (%) (Auto) 11.0 % (0.0-8.0) 8.5 % (0.0-8.0) 9.0 % (0.0-8.0) Monocytes # (Auto) 1.1 TH/MM3 (0-0.9) 1.0 TH/MM3 (0-0.9) Blood Urea Nitrogen 24 MG/DL (7-18) Chloride Level 116 MEQ/L (98-107) 118 MEQ/L (98-107) 118 MEQ/L (98-107) Carbon Dioxide Level 18.0 MEQ/L (21.0-32.0) 16.7 MEQ/L (21.0-32.0) 16.5 MEQ/L (21.0-32.0) Estimat Glomerular Filtration Rate 73 ML/MIN (>89) 73 ML/MIN (>89) 73 ML/MIN (>89) White Blood Count 11.2 TH/MM3 (4.0-11.0) 11.1 TH/MM3 (4.0-11.0) Platelet Count 466 TH/MM3 (150-450) Lymphocytes (%) (Auto) 7.1 % (9.0-44.0) Neutrophils # (Auto) 9.5 TH/MM3 (1.8-7.7) 8.7 TH/MM3 (1.8-7.7) Lymphocytes # (Auto) 0.8 TH/MM3 (1.0-4.8) Random Glucose 168 MG/DL (74-106) 116 MG/DL (74-106) Sodium Level 147 MEQ/L (136-145) 148 MEQ/L (136-145) Imaging Last Impressions Head CT 08/16/17 0000 Signed Impressions: Service Date/Time: Wednesday, August 16, 2017 02:56 - CONCLUSION: Normal examination. Gio Catalan MD Abdomen/Pelvis CT 08/13/171956 Signed Impressions: Service Date/Time: Sunday, August 13, 2017 21:04 - CONCLUSION: 1. Abnormal soft tissue mass in the inferior right pelvis measuring at least 5.6 cm. It abuts the rectum, sigmoid colon, and right obturator internus. This is associated with a fistulous connection between the sigmoid colon and rectum. This finding could represent a local recurrence or metastatic disease related to the patient's known bladder cancer. Additionally, it could be sequela from this prior inflammatory process or surgery. Correlating with prior studies would be helpful. Some of this tissue is amenable to percutaneous biopsy if histologic diagnosis is needed. 2. There is a 6 mm nodule in the right lower lobe. Suggest correlating with any prior imaging studies. Ishaan Robles MD PE at Discharge GENERAL: Chronically ill-appearing elderly male laying in bed in no apparent distress. SKIN: Warm and dry. HEAD: Normocephalic. EYES: No scleral icterus. No injection or drainage. NECK: Supple, trachea midline. No JVD or lymphadenopathy. CARDIOVASCULAR: Regular rate and rhythm without murmurs, gallops, or rubs. RESPIRATORY: Breath sounds equal bilaterally. No accessory muscle use. GASTROINTESTINAL: Abdomen soft, non-tender, nondistended. Urostomy bag at right lower quadrant. EXTREMITIES: No cyanosis, or edema. NEUROLOGICAL: Awake, alert, and oriented x 3, clear mentation. Non-focal. Pt update on day of discharge Patient is alert oriented, no further confusion. Further information was obtained from the patient's pharmacy indicating that the patient is on a fentanyl patch. Patient states he does use a fentanyl patch. Patient states he has only mild pain in the lower abdomen usually and that mainly his pain flares up when he gets anxious. Patient continues to have loose stools but they have decreased in frequency. Hospital Course Patient was admitted to the hospital and treated with IV fluid hydration, antibiotics. His sedating medications were held. Patient did require soft restraints to prevent him from getting out of bed and falling. Patient's mentation improved with holding his pain medications. Head CT without contrast was negative for acute findings. Patient lives with his girlfriend however she was unaware of all of the medications he was taking. Patient apparently was on fentanyl patch, Percocet, Lortab and Ativan. Patient continued to have loose stools however C. difficile was negative. Abdominal CT findings were reviewed with patient's oncologist Dr. Martino, these are known findings. Patient was not a candidate for further radiation or surgery as per his evaluation at [facility]. I talked with the patient and his extensively regarding sedating effects of some of the medications he is on. I recommend that he not go back on the fentanyl patch. Patient appears to have only minimal pain in the lower abdomen. I recommend trying Tylenol and if that is not effective to try Percocet. Patient does have significant anxiety symptoms at time and will continue the Ativan. I recommend that his girlfriend control his medications for a while. Patient will be prescribed Cipro and Flagyl. He is also prescribed Macrobid for Escherichia coli urinary tract infection which was resistant to fluoroquinolones. He is prescribed Lactinex and Imodium. Home health care and physical therapy has been arranged for the patient. Patient will be discharged home today. He is to follow-up with his oncologist within 1 week. Pt Condition on Discharge: Stable Discharge Disposition: Disch w/ Home Health Serv Discharge Time: > 30 minutes Discharge Instructions DIET: Follow Instructions for: As Tolerated, No Restrictions Activities you can perform: Regular-No Restrictions Follow up Referrals: Oncology - 1 Month with Gavino Martino DO [facility]/ with NURSE GARAGE DOOR TECHNICIAN New Medications: Acetaminophen (Tylenol) 325 Mg Tab 650 MG PO Q6H PRN for pain, #30 TAB 0 Refills Ciprofloxacin (Ciprofloxacin) 500 Mg Tab 500 MG PO BID for Infection, #8 TAB 0 Refills Lactobacillus Acidophilus (Lactinex) 1 Chew 1 TAB CHEW TID for Nutritional Supplement, #90 TAB 0 Refills Metronidazole (Metronidazole) 500 Mg Tab 500 MG PO TID for Infection, #12 TAB 0 Refills Nitrofurantoin Monohydrate Macrocrystals (Nitrofurantoin Monohydrate Macrocrystals) 100 Mg Cap 100 MG PO BID for Infection, #28 CAP 0 Refills Loperamide HCl (Hm Loperamide HCl) 2 Mg Cap 2 MG PO Q6H PRN for diarrhea, #30 CAP Changed Medications: Oxycodone-Acetaminophen (Percocet) 10-325 mg Tab 0.5 TAB PO Q6H PRN for PAIN, #1 TAB 0 Refills (Changed from: 1 TAB) Do not give if patient is confused or sleepy. Continued Medications: Lorazepam (Lorazepam) 0.5 Mg Tab 0.5 MG PO Q6H PRN for ANXIETY, TAB 0 Refills Megestrol Acetate (Megestrol Acetate) 800 Mg/20 Ml (20 Ml) Oral.susp MG DAILY Prochlorperazine Maleate (Prochlorperazine Maleate) 10 Mg Tab 10 MG PO Q4-6H, TAB 0 Refills Discontinued Medications: Fentanyl Patch 72 HR (Fentanyl Patch 72 HR) 50 Mcg/Hr Patch 50 MCG T-DERMAL Q72H for Pain Management, #10 PATCH 0 Refills Remove old patch when new one placed. Fluconazole (Diflucan) 100 Mg Tab 100 MG PO EVERY OTHER DAY for Infection, TAB 0 Refills Maci Beatty MD Aug 17, 2017 10:35
[2017-08-17] MEDS ORDERED: NITR100C4 PO (12:30)
== END 2017-08-17 12:20 | disposition home health service (06) | DRG 391 ==
LOC: PHED 19:27 → INTOOBSV 22:43 → PHEDA 22:43 → PH3A 23:52 → OBSVTOIN 08-15 17:06
PROVIDERS: ADMIT Family Medicine; ATTEND Family Medicine
DX: A08.4 Viral intestinal infection, unspecified (principal); G93.41 Metabolic encephalopathy; N17.9 Acute kidney failure, unspecified; I48.91 Unspecified atrial fibrillation; N39.0 Urinary tract infection, site not specified; C67.9 Malignant neoplasm of bladder, unspecified; E86.0 Dehydration; B96.20 Unspecified Escherichia coli [E. coli] as the cause of diseases classified elsewhere; E78.00 Pure hypercholesterolemia, unspecified; E11.9 Type 2 diabetes mellitus without complications; M35.3 Polymyalgia rheumatica; Z93.6 Other artificial openings of urinary tract status; Z78.1 Physical restraint status; Z87.891 Personal history of nicotine dependence
CPT/HCPCS: 70450; 74176; 80048; 80053; 81001; 82948; 83690; 83735; 85025; 87077; 87086; 87186; 87493; 96361; 96372; G0378; J0696; J1630; J1650; J2060; J7030

== ENCOUNTER 2017-09-26 09:52 | Inpatient (IN) | payer MEDICARE, OTHER ==
[2017-09-26] VITALS (7 sets, daily range): BP systolic 106–160; BP diastolic 55–68; PULSE 100–118; RESP 16–18; TEMP 96.2–97.6; O2SAT 95–99
[~2017-09-26] VITALS: Ht 193 cm; Wt 95.8 kg
[~2017-09-26 09:52] MED LIST changes: -ASPI325T10 PO; +CIPR500T2 PO; -DILT180C PO; +LACTCHW3 CHEW; +LOPE2CAP2 PO; +LORA0.5T PO; +MEGE40SU6; -METF500 PO; +METR1TAB76 PO; -MULT-65 PO; -MULT1TAB46 PO; +NITR100C4 PO; +PERC10TA27 PO; -PERC7.5T13 PO; -PRAV40TA2 PO; -PRED5TAB PO; +PROC10TA PO; -RAPA8CAP PO; -ROPI0.5T PO; -SOMA350T PO; +TYLE325T PO
[2017-09-26] MEDS ORDERED: [UNRECOGNIZED DRUG - REMARK] (10:20)
[2017-09-26] MEDS ORDERED: SODIUM CHLORIDE 0.9% FLUSH 10 ML FLUSH IV FLUSH PRN ×2 (10:30→12:45)
[2017-09-26] MEDS ORDERED: ONDANSETRON HCL 4 MG/2 ML VIAL IVP ONE (10:30)
[2017-09-26] MEDS ORDERED: MORPHINE SULFATE 2 MG/ML INJ IV PUSH ONE (10:30)
--- NOTE | 2017-09-26 10:32 | PD ---
HPI Chief Complaint: Abdominal Pain Time Seen by Provider: 10:03 Travel History International Travel<30 days: No Contact w/Intl Traveler<30days: No Traveled to known affect area: No History of Present Illness HPI Patient 77-year-old male presents emergency department for evaluation of constipation and bloating and abdominal pain for the past 3-4 days. Patient states unrelieved by Percocet which she's been trying at home. Followed by Dr. Akins. Patient states his been having only small volume bowel movements if and when he can have any. No fever mild nausea without vomiting, states the pain is been gradually getting worse, states 8 out of 10 in severity. Severity context associated signs symptoms and duration as above. PFSH Past Medical History Hx Anticoagulant Therapy: Yes (asa 325mg) Arthritis: Yes Atrial Fibrillation: Yes Anxiety: Yes Depression: No Heart Rhythm Problems: Yes Cancer: Yes (BLADDER) Cardiovascular Problems: Yes (htn on meds) High Cholesterol: Yes Chemotherapy: Yes Chest Pain: No Congestive Heart Failure: No Diabetes: Yes Patient Takes Glucophage: No Diminished Hearing: No Endocrine: No GERD: No Genitourinary: Yes (BLADDER CA) Hepatitis: No Hiatal Hernia: No Hypertension: Yes Immune Disorder: No Implanted Vascular Access Dvce: Yes Kidney Stones: No Musculoskeletal: Yes ([place]) Neurologic: No Psychiatric: No Reproductive: No Respiratory: No Immunizations Current: Yes Radiation Therapy: Yes Renal Failure: No Thyroid Disease: No Ulcer: No Past Surgical History Abdominal Surgery: No AICD: No Body Medical Devices: N/A Cardiac Surgery: No Ear Surgery: No Endocrine Surgery: No Eye Surgery: Yes (CATARACTS) Genitourinary Surgery: Yes (BLADDER urostomy) Gynecologic Surgery: No Joint Replacement: No Oral Surgery: No Pacemaker: No Thoracic Surgery: No Other Surgery: Yes (TONSILS A KID, KIDNEY STENTS, BLADDER) Social History Alcohol Use: Yes (alittle ) Tobacco Use: No (QUIT 1984) Substance Use: No Allergies-Medications (Allergen,Severity, Reaction): Coded Allergies: No Known Allergies (Unverified , 09/26/17) Reported Meds & Prescriptions Reported Meds & Active Scripts Active Percocet (Oxycodone-Acetaminophen) 10-325 mg Tab 0.5 Tab PO Q6H PRN Do not give if patient is confused or sleepy. Reported [?Heart Pill] Megestrol Acetate 800 Mg/20 Ml (20 Ml) Oral.susp Mg DAILY Prochlorperazine Maleate 10 Mg Tab 10 Mg PO Q4-6H Review of Systems Except as stated in HPI: all other systems reviewed are Neg Physical Exam Narrative GENERAL: Well-developed well-nourished, appears mildly uncomfortable. SKIN: Focused skin assessment warm/dry. HEAD: Atraumatic. Normocephalic. EYES: Pupils equal and round. No scleral icterus. No injection or drainage. ENT: No nasal bleeding or discharge. Mucous membranes pink and moist. NECK: Trachea midline. No JVD. CARDIOVASCULAR: Regular rate and rhythm. No murmur appreciated. RESPIRATORY: No accessory muscle use. Clear to auscultation. Breath sounds equal bilaterally. GASTROINTESTINAL: Abdomen soft, non-tender, significant distention with tympanic percussion. No peritoneal signs. Right-sided ileostomy with clear- yellow drainage. Hepatic and splenic margins not palpable. Rectal exam shows a lumpy bumpy mass anterior to the rectum, no stool felt. MUSCULOSKELETAL: No obvious deformities. No clubbing. No cyanosis. No edema. NEUROLOGICAL: Awake and alert. No obvious cranial nerve deficits. Motor grossly within normal limits. Normal speech. PSYCHIATRIC: Appropriate mood and affect; insight and judgment normal. Data Data Last Documented VS Vital Signs Date Time Temp Pulse Resp B/P (MAP) Pulse Ox O2 Delivery O2 Flow Rate FiO2 09/26/17 12:16 104 18 123/61 (81) 97 Room Air 09/26/17 09:54 97.6 Orders Orders Complete Blood Count With Diff (09/26/17 10:28) Comprehensive Metabolic Panel (09/26/17 10:28) Lipase (09/26/17 10:28) Iv Access Insert/Monitor (09/26/17 10:28) Ecg Monitoring (09/26/17 10:28) Oximetry (09/26/17 10:28) Ondansetron Inj (Zofran Inj) (09/26/17 10:30) Sodium Chloride 0.9% Flush (Ns Flush) (09/26/17 10:30) Morphine Inj (Morphine Inj) (09/26/17 10:30) Ct Abd/Pel W/O Iv Contrast (09/26/17 10:28) Consult General Surgery (09/26/17 12:35) Consult Yen Nfs (09/26/17 ) Admit Order (Ed Use Only) (09/26/17 ) Labs Laboratory Tests Test 09/26/17 10:38 White Blood Count 17.0 TH/MM3 Red Blood Count 3.38 MIL/MM3 Hemoglobin 9.7 GM/DL Hematocrit 29.8 % Mean Corpuscular Volume 88.2 FL Mean Corpuscular Hemoglobin 28.6 PG Mean Corpuscular Hemoglobin Concent 32.5 % Red Cell Distribution Width 17.1 % Platelet Count 527 TH/MM3 Mean Platelet Volume 6.4 FL Neutrophils (%) (Auto) 86.8 % Lymphocytes (%) (Auto) 5.0 % Monocytes (%) (Auto) 7.3 % Eosinophils (%) (Auto) 0.6 % Basophils (%) (Auto) 0.3 % Neutrophils # (Auto) 14.8 TH/MM3 Lymphocytes # (Auto) 0.9 TH/MM3 Monocytes # (Auto) 1.2 TH/MM3 Eosinophils # (Auto) 0.1 TH/MM3 Basophils # (Auto) 0.1 TH/MM3 CBC Comment DIFF FINAL Differential Comment Blood Urea Nitrogen 63 MG/DL Creatinine 2.30 MG/DL Random Glucose 170 MG/DL Total Protein 7.3 GM/DL Albumin 2.9 GM/DL Calcium Level 9.4 MG/DL Alkaline Phosphatase 60 U/L Aspartate Amino Transf (AST/SGOT) 8 U/L Alanine Aminotransferase (ALT/SGPT) 22 U/L Total Bilirubin 0.3 MG/DL Sodium Level 138 MEQ/L Potassium Level 4.8 MEQ/L Chloride Level 107 MEQ/L Carbon Dioxide Level 20.1 MEQ/L Anion Gap 11 MEQ/L Estimat Glomerular Filtration Rate 28 ML/MIN Lipase 104 U/L [facility] Medical Decision Making Medical Screen Exam Complete: Yes Emergency Medical Condition: Yes Differential Diagnosis bowel obstruction, dehydration, acute kidney injury, metastatic disease. Narrative Course Patient roomed in emergency department, appears chronically ill but nontoxic. Abdomen is distended, review his previous CTs does show a large amount of stool in his large intestine. Given his distention and the devon-sigmoid mass which is unfortunately recurred on his abdominal wall I suspect that he does have a large bowel obstruction, CT confirms. Last 24 hours Impressions Abdomen/Pelvis CT 09/26/17 1028 Signed Impressions: Service Date/Time: Tuesday, September 26, 2017 11:08 - CONCLUSION: 1. Central and right sided pelvic mass causing luminal constriction of the sigmoid colon and rectum preventing evacuation of stool from the colon. 2. 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 3. Cortical distention of the cecum with impacted stool throughout the colon. 4. Status post ureteroileal diversion. 5. Stable 6 mm nodule right lung base. Marty White MD The patient was discussed with Sharon Torres who is the GATE SERVICES SUPERVISOR for Dr. Martino the patient's oncologist. Patient has been on up to go on steroids and has been purporting diarrhea over the past few months. I wonder if this is an overflow diarrhea. He has been evaluated by Dr. Momo Sainz at the [facility] who did his urostomy. They've evaluated him for surgical options for the mass and deemed him not a candidate but they have not evaluated him for a diverting colostomy. The patient was then discussed with Dr. José who is the general surgeon senior radiation therapist today as we have no colorectal surgeon on-call. Dr. José managed to reach Dr. Amezquita who will do a consult for us. Patient ultimately discussed with Dr. Cameron for admission. Patient has been given doses of morphine and Dilaudid in the emergency department. Diagnosis Primary Impression: Large bowel obstruction Additional Impression: Malignant neoplasm metastatic from bladder Admitting Information Admitting Physician Requests: Admit Condition: Stable Nathan Hodge MD Sep 26, 2017 10:32
[2017-09-26 10:43] LABS: AUTOMATED NEUTROPHIL # 14.8 TH/MM3 (1.8-7.7); BASOPHIL # 0.1 TH/MM3 (0-0.2); BASOPHIL % 0.3 % (0.0-2.0); EOSINOPHIL # 0.1 TH/MM3 (0-0.4); EOSINOPHIL % 0.6 % (0.0-4.0); HEMATOCRIT 29.8 % (39.0-51.0); HEMOGLOBIN 9.7 GM/DL (13.0-17.0); LYMPHOCYTE # 0.9 TH/MM3 (1.0-4.8); MEAN CELL VOLUME 88.2 FL (80.0-100.0); MEAN CORPUSCULAR HEMOGLOBIN 28.6 PG (27.0-34.0); MEAN CORPUSCULAR HGB CONC 32.5 % (32.0-36.0); MEAN PLATELET VOLUME 6.4 FL (7.0-11.0); MONO % 7.3 % (0.0-8.0); MONOCYTE # 1.2 TH/MM3 (0-0.9); NEUT % 86.8 % (16.0-70.0); PLATELET COUNT 527 TH/MM3 (150-450); RED BLOOD COUNT 3.38 MIL/MM3 (4.50-5.90); RED CELL DISTRIBUTION WIDTH 17.1 % (11.6-17.2)
[2017-09-26 10:51] LABS: CHLORIDE 107 MEQ/L (98-107); SODIUM (NA) 138 MEQ/L (136-145)
[2017-09-26 10:54] LABS: CALCIUM 9.4 MG/DL (8.5-10.1)
[2017-09-26 10:55] LABS: ALBUMIN 2.9 GM/DL (3.4-5.0); BICARBONATE 20.1 MEQ/L (21.0-32.0); BLOOD UREA NITROGEN 63 MG/DL (7-18); GLUCOSE,RANDOM 170 MG/DL (74-106); LIPASE 104 U/L (73-393)
[2017-09-26 10:57] LABS: ALT (GPT) 22 U/L (12-78)
[2017-09-26 10:58] LABS: AST (GOT) 8 U/L (15-37); GLOMERULAR FILTRATION RATE 28 ML/MIN (>89)
[2017-09-26 10:59] LABS: TOTAL BILIRUBIN ADULT 0.3 MG/DL (0.2-1.0); TOTAL PROTEIN 7.3 GM/DL (6.4-8.2)
[2017-09-26 11:00] LABS: ALKALINE PHOSPHATASE 60 U/L (45-117)
--- NOTE | 2017-09-26 11:40 | RADRPT ---
EXAM DATE/TIME: 09/26/2017 11:08 [facility] COMPARISON: CT ABDOMEN & PELVIS W/O CONTRAST, August 13, 2017, 21:04. INDICATIONS : Mid to lower abdominal pain and distention for two months, getting worse the past few days. ORAL CONTRAST: No oral contrast ingested. RADIATION DOSE: 17.60 CTDIvol (mGy) MEDICAL HISTORY : Carcinoma, bladder. Hypertension. Anticoagulant therapy. Blocked right kidney. Diabetes. SURGICAL HISTORY : Prostatectomy. Urostomy. ENCOUNTER: Initial ACUITY: 2 months PAIN SCALE: 6/10 LOCATION: lower quadrant TECHNIQUE: Volumetric scanning of the abdomen and pelvis was performed. Using automated exposure control and ad justment of the mA and/or kV according to patient size, radiation dose was kept as low as reasonably achievable to obtain optimal diagnostic quality images. DICOM format image data is available electro nically for review and comparison. FINDINGS: LOWER LUNGS: 6 mm nodule in the right lung base along the posterior pleural margin is stable. No new nodules are n oted. LIVER: Homogeneous density without lesion. There is no dilation of the biliary tree. No calcified gallston es. SPLEEN: Normal size without lesion. PANCREAS: Within normal limits. KIDNEYS: Mild hydronephrosis identified on the prior study has resolved. Ureteroileal diversion is again noted . ADRENAL GLANDS: Within normal limits. VASCULAR: There is no aortic aneurysm. BOWEL/MESENTERY: A large amount of stool remains evident throughout the colon. There is increasing distention of the c ecum which now measures 11.5 cm in cross-sectional diameter. The impacted stool extends to the rectos igmoid junction. Previously described central and right sided pelvic mass is again noted. The rectosi gmoid fistula which is encased by the mass is more clearly defined. The mass appears to be causing tana steven constriction resulting in a partially obstructing process. ABDOMINAL WALL: Within normal limits. RETROPERITONEUM: There is no lymphadenopathy. BLADDER: Not identifiable. REPRODUCTIVE: Prostate cannot be identified. INGUINAL: There is no lymphadenopathy or hernia. MUSCULOSKELETAL: Within normal limits for patient age. CONCLUSION: 1. Central and right sided pelvic mass causing luminal constriction of the sigmoid colon and rectum p reventing evacuation of stool from the colon. 2. 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 3. Cortical distention of the cecum with impacted stool throughout the colon. 4. Status post ureteroileal diversion. 5. Stable 6 mm nodule right lung base. Marty White MD on September 26, 2017 at 11:22 Board Certified Radiologist. This report was verified electronically.
[2017-09-26] MEDS ORDERED: ROCURONIUM INJ 50 MG/5 ML SYRINGE IV PUSH ONE (12:00)
[2017-09-26] MEDS ORDERED: DEXAMETHASONE SOD PHOS 4 MG/ML VIAL IV ONE (12:00)
[2017-09-26] MEDS ORDERED: SUCCINYLCHOLINE CHLORIDE 100 MG/5 ML SYRINGE IV PUSH ONE (12:00)
[2017-09-26] MEDS ORDERED: LIDOCAINE HCL 1% PF 5 ML SYRINGE OTHER ONE (12:00)
[2017-09-26] MEDS ORDERED: ONDANSETRON HCL 4 MG/2 ML VIAL IV ONE (12:00)
[2017-09-26] MEDS ORDERED: KETOROLAC TROMETHAMINE 30 MG/ML (IVP) VIAL IV PUSH ONE (12:00)
[2017-09-26] MEDS ORDERED: PROPOFOL 200 MG/20 ML AMP IV ONE (12:00)
[2017-09-26] MEDS ORDERED: PHENYLEPH/NS 1000 MCG/10 ML SYR IV ONE (12:00)
[2017-09-26] MEDS ORDERED: METOCLOPRAMIDE HCL 10 MG/2 ML VIAL IV PUSH PRN (12:45)
[2017-09-26] MEDS ORDERED: LACTULOSE SYRUP 20 GM/30 ML CUP PO PRN (12:45)
[2017-09-26] MEDS ORDERED: ONDANSETRON HCL 4 MG/2 ML VIAL IVP PRN (12:45)
[2017-09-26] MEDS ORDERED: MAGNESIUM HYDROXIDE SUSP 30 ML CUP PO PRN (12:45)
[2017-09-26] MEDS ORDERED: NALOXONE HCL 0.4 MG/ML AMP IV PUSH PRN ×2 (12:45→13:00)
[2017-09-26] MEDS ORDERED: ACETAMINOPHEN 325 MG TAB PO PRN (12:45)
[2017-09-26] MEDS ORDERED: BISACODYL 10 MG SUPP RECTAL PRN (12:45)
[2017-09-26] MEDS ORDERED: SENNOSIDES 8.6 MG TAB PO PRN (12:45)
[2017-09-26] MEDS ORDERED: LORazepam 0.5 MG TAB PO PRN (13:00)
[2017-09-26] MEDS ORDERED: ACETAMINOPHEN/HYDROcodone 325 MG/5 MG TAB PO PRN (13:00)
[2017-09-26] MEDS ORDERED: MORPHINE SULFATE 2 MG/ML INJ IV PUSH PRN ×2 (13:15)
[2017-09-26] MEDS ORDERED: HYDROmorphone HCL PF 2 MG/ML VIAL IV PUSH ONE (13:30)
[2017-09-26] MEDS: SODIUM CHLOR 0.9% 1000 ML INJ 1,000 ML IV SCH ×2 (13:30→15:50)
--- NOTE | 2017-09-26 13:53 | HHI.HP ---
[facility] Sandor Atkins M.D. Admission Diagnosis Large Bowel Obstruction. Diagnoses: Chief Complaint: Intractable nausea or vomiting, abdominal pain Travel History International Travel<30 Days: No Contact w/Intl Traveler <30 Da: No Traveled to Known Affected Are: No History of Present Illness The patient is a very pleasant 77-year-old male with the past medical history of prostate cancer with radiation, cystectomy for bladder cancer with urostomy. The patient is with stage IV bladder cancer and is following with Dr. Martino as outpatient hematology oncology, last chemotherapy was received 3 weeks ago. The patient has recurrence of the tumor in the pelvis. He has associated abdominal pain, intractable nausea and vomiting and constipation. These symptoms are on and off however for the past 4 days abdominal pain is not relieved by pain medications and nausea vomiting his intractable. He has very later stool and minimum amount of gas per rectum. There is no rectal bleeding. Imaging shows worsening obstruction of his rectosigmoid due to pelvic mass. Dr. José was consulted however the patient was seen by Dr. Amezquita. Recommends transferring patient to [facility]. Otherwise he denies any chest pain, shortness of breath, palpitations, headaches. No motor deficit. No fever or chills. Review of Systems Except as stated in HPI: all other systems reviewed are Neg Past Family Social History Past Medical History Prostate cancer Stage IV bladder cancer Past Surgical History Right shoulder surgery Urostomy Cystectomy Reported Medications Reported Meds & Active Scripts Active Percocet (Oxycodone-Acetaminophen) 10-325 mg Tab 0.5 Tab PO Q6H PRN Do not give if patient is confused or sleepy. Reported [?Heart Pill] Megestrol Acetate 800 Mg/20 Ml (20 Ml) Oral.susp Mg DAILY Prochlorperazine Maleate 10 Mg Tab 10 Mg PO Q4-6H Allergies: Coded Allergies: No Known Allergies (Unverified , 09/26/17) Family History Family is healthy, no history of cancers in his family Social History Quit smoking in 8 used to smoke half a pack a day Denies alcohol use or illicit drug use Physical Exam Vital Signs Vital Signs Date Time Temp Pulse Resp B/P (MAP) Pulse Ox O2 Delivery O2 Flow Rate FiO2 09/26/17 13:48 18 09/26/17 13:27 107 18 136/65 (88) 98 Room Air 09/26/17 12:16 104 18 123/61 (81) 97 Room Air 09/26/17 10:56 18 09/26/17 10:46 107 18 106/55 (72) 97 Room Air 09/26/17 10:15 16 09/26/17 09:54 97.6 118 16 138/67 (90) 99 Physical Exam GENERAL: This is a well-nourished, well-developed patient, in no apparent distress. SKIN: No rashes, ecchymoses or lesions. Cool and dry. HEAD: Atraumatic. Normocephalic. No temporal or scalp tenderness. EYES: Pupils equal round and reactive. Extraocular motions intact. No scleral icterus. No injection or drainage. ENT: Nose without bleeding, purulent drainage or septal hematoma. Throat without erythema, tonsillar hypertrophy or exudate. Uvula midline. Airway patent. NECK: Trachea midline. No JVD or lymphadenopathy. Supple, nontender, no meningeal signs. CARDIOVASCULAR: Regular rate and rhythm without murmurs, gallops, or rubs. RESPIRATORY: Clear to auscultation. Breath sounds equal bilaterally. No wheezes , rales, or rhonchi. GASTROINTESTINAL: Abdomen diffuse mild tenderness, urostomy tube in place with some urine output, nondistended. No hepato-splenomegaly, or palpable masses. No guarding. MUSCULOSKELETAL: Muscle wasting lower extremities. Extremities without clubbing , cyanosis, or edema. No joint tenderness, effusion, or edema noted. No calf tenderness. Negative Homans sign bilaterally. NEUROLOGICAL: Awake and alert. Cranial nerves II through XII intact. Motor and sensory grossly within normal limits. Five out of 5 muscle strength in all muscle groups. Normal speech. Laboratory Laboratory Tests Test 09/26/17 10:38 White Blood Count 17.0 Red Blood Count 3.38 Hemoglobin 9.7 Hematocrit 29.8 Mean Corpuscular Volume 88.2 Mean Corpuscular Hemoglobin 28.6 Mean Corpuscular Hemoglobin Concent 32.5 Red Cell Distribution Width 17.1 Platelet Count 527 Mean Platelet Volume 6.4 Neutrophils (%) (Auto) 86.8 Lymphocytes (%) (Auto) 5.0 Monocytes (%) (Auto) 7.3 Eosinophils (%) (Auto) 0.6 Basophils (%) (Auto) 0.3 Neutrophils # (Auto) 14.8 Lymphocytes # (Auto) 0.9 Monocytes # (Auto) 1.2 Eosinophils # (Auto) 0.1 Basophils # (Auto) 0.1 CBC Comment DIFF FINAL Differential Comment Blood Urea Nitrogen 63 Creatinine 2.30 Random Glucose 170 Total Protein 7.3 Albumin 2.9 Calcium Level 9.4 Alkaline Phosphatase 60 Aspartate Amino Transf (AST/SGOT) 8 Alanine Aminotransferase (ALT/SGPT) 22 Total Bilirubin 0.3 Sodium Level 138 Potassium Level 4.8 Chloride Level 107 Carbon Dioxide Level 20.1 Anion Gap 11 Estimat Glomerular Filtration Rate 28 Lipase 104 Result Diagram: 09/26/17 1038 09/26/17 1038 Imaging Last Impressions Abdomen/Pelvis CT 09/26/17 1028 Signed Impressions: Service Date/Time: Tuesday, September 26, 2017 11:08 - CONCLUSION: 1. Central and right sided pelvic mass causing luminal constriction of the sigmoid colon and rectum preventing evacuation of stool from the colon. 2. 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 3. Cortical distention of the cecum with impacted stool throughout the colon. 4. Status post ureteroileal diversion. 5. Stable 6 mm nodule right lung base. MD Matheus Fofanai VTE Risk Assessment Caprini VTE Risk Assessment: Mod/High Risk (score >= 2) Caprini Risk Assessment Model Point Value = 1 Point Value = 2 Point Value = 3 Point Value = 5 Age 41-60 Minor surgery BMI > 25 kg/m2 Swollen legs Varicose veins or History of unexplained or recurrent spontaneous Oral contraceptives or hormone replacement Sepsis (< 1 month) Serious lung disease, including pneumonia (< 1 month) Abnormal pulmonary function Acute myocardial infarction Congestive heart failure (< 1 month) History of inflammatory bowel disease Medical patient at bed rest Age 61-74 Arthroscopic surgery Major open surgery (> 45 min) Laparoscopic surgery (> 45 min) Malignancy Confined to bed (> 72 hours) Immobilizing plaster cast Central venous access Age >= 75 History of VTE Family history of VTE Factor V Leiden Prothrombin [id number] Lupus anticoagulant Anticardiolipin antibodies Elevated serum homocysteine Heparin-induced thrombocytopenia Other congenital or acquired thrombophilia Stroke (< 1 month) Elective arthroplasty Hip, pelvis, or leg fracture Acute spinal cord injury (< 1 month) Prophylaxis Regimen Total Risk Factor Score Risk Level Prophylaxis Regimen 0-1 Low Early ambulation 2 Moderate Order ONE of the following: *Sequential Compression Device (SCD) *Heparin 5000 units SQ BID 3-4 Higher Order ONE of the following medications: *Heparin 5000 units SQ TID *Enoxaparin/Lovenox 40 mg SQ daily (WT < 150 kg, CrCl > 30 mL/min) *Enoxaparin/Lovenox 30 mg SQ daily (WT < 150 kg, CrCl > 10-29 mL/min) *Enoxaparin/Lovenox 30 mg SQ BID (WT < 150 kg, CrCl > 30 mL/min) AND/OR *Sequential Compression Device (SCD) 5 or more Highest Order ONE of the following medications: *Heparin 5000 units SQ TID (Preferred with Epidurals) *Enoxaparin/Lovenox 40 mg SQ daily (WT < 150 kg, CrCl > 30 mL/min) *Enoxaparin/Lovenox 30 mg SQ daily (WT < 150 kg, CrCl > 10-29 mL/min) *Enoxaparin/Lovenox 30 mg SQ BID (WT < 150 kg, CrCl > 30 mL/min) AND *Sequential Compression Device (SCD) Assessment and Plan Assessment and Plan 77-year-old male with History of prostate cancer with radiation Stage IV bladder cancer with cystectomy and urostomy. Progressive pelvic recurrence of bladder cancer with obstruction of the rectosigmoid. Intractable nausea or vomiting CT scan was reviewed and finding discussed with Dr. Amezquita and emergency room doctor reveals significantly increased distention, pelvic recurrence of bladder cancer with obstruction of the rectosigmoid. Keep nothing by mouth Transfer patient to [facility] Dr. José'nicola surgery plans for palliative decompression surgery in the afternoon today colonic diapers Pain medications IV and by mouth take by mouth, per pain scale Antiemetics, laxatives/ Stool softeners as needed. DVT prophylaxis SCD/teds laxatives as planned for OR later today Discussed Condition With Patient, nurse, ED physician Physician Certification 2 Midnight Certification Type: Admission for Inpatient Services Order for Inpatient Services The services are ordered in accordance with Medicare regulations or non- Medicare payer requirements, as applicable. In the case of services not specified as inpatient-only, they are appropriately provided as inpatient services in accordance with the 2-midnight benchmark. Estimated LOS (days): 3 days is the estimated time the patient will need to remain in the hospital, assuming treatment plan goals are met and no additional complications. Post-Hospital Plan: Home Selena Cameron MD Sep 26, 2017 13:53
[2017-09-26] MEDS: MORPHINE SULFATE 2 MG/ML INJ IV PUSH PRN (15:51)
[2017-09-26] MEDS ORDERED: BUPIVACAINE/EPINEPHRINE 0.25% PF 30 ML VIAL ONE (16:40)
--- NOTE | 2017-09-26 16:43 | MB ---
cc: YAIMA MCKOY M.D. DATE OF CONSULTATION 09/26/[address] José REASON FOR CONSULTATION Colonic obstruction. History of recurrent bladder cancer. HISTORY OF PRESENT ILLNESS Mr. Foley is a 77-year-old male known to have had prostate radiation and then cystectomy for bladder cancer with urostomy. The patient has been doing well knowing that he has recurrence of the tumor in the pelvis. He has been on chemotherapy with uncertain results. The patient was seen a month or so ago for abdominal pain and some constipation symptoms. These were appeared to resolve with laxatives and increased fluid intake. He presents now after three or four days of increasing abdominal pain unrelieved by any pain pills. Urostomy has continued to function but he has had very little stool or minimal amount of gas out the rectum. He had no appetite. Denies any rectal bleeding or melena. The patient was seen in the ER, evaluated and found to have worsening obstruction of his rectosigmoid due to the pelvic mass and Dr. José was consulted and contacted the undersigned for possibility of a intraluminal colonic stent for decompression. Please see admitting history and physical for complete past medical and surgical history. PHYSICAL EXAMINATION GENERAL: Pertinent physical, a very pleasant older male in some discomfort. HEENT: Remarkable for dry, pale membranes, nonicteric sclera. NECK: The neck was a little stiff without adenopathy. CHEST: Diminished in the bases, clear anteriorly. HEART: Had a regular rhythm. ABDOMEN: The abdomen was very large, firm, positive tympany. Bowel sounds were pretty quiet. No rebound or guarding. Minimal tenderness to deep palpation. RECTAL: Anal inspection revealed benign canal. Digital exam reveals a hard pelvic mass with some lumen palpable but very irregular and narrowing at the proximal pelvic inlet. EXTREMITIES: No cyanosis or clubbing and minimal 1+ pedal edema. IMPRESSION Progressive pelvic recurrence of bladder cancer with obstruction of the rectosigmoid. CT scan was reviewed showing fairly significant increased distension over scan about a month ago. Cecum has gotten quite large. Reviewed at length with the patient, very doubtful that a stent is going to relieve this obstruction, especially with the large amount of stool seen on his CT scan. He would ____ be better palliated by bringing up a transverse loop colostomy and decompressing the colon prior to perforation. Discussed at great length with the patient and with Dr. José and Dr. José plans on taking the patient to the OR later this afternoon for the proposed colonic diversion. MD JYOTI Rendon/KALA /3:02 PM /4:12 PM
[2017-09-26] MEDS ORDERED: ceFAZolin 2 GM PREMIX 50 ML ONE (19:14)
[2017-09-26] MEDS ORDERED: SUGAMMADEX SODIUM 200 MG/2 ML VIAL IV PUSH ONE (20:10)
[2017-09-26] MEDS ORDERED: DO NOT ADM ANY ANTICOAGULANT DRUGS PRN (20:37)
--- NOTE | 2017-09-26 20:58 | HHI.PR ---
cc: Adelso José MD Immediate Post Op Note Procedure Date: Sep 26, 2017 Pre Op Diagnosis: (1) Hydronephrosis of right kidney (2) Bladder cancer (3) Acute kidney injury (4) Complicated UTI (urinary tract infection) (5) Large bowel obstruction (6) Malignant neoplasm metastatic from bladder Post Op Diagnosis: (1) Dehydration (2) Large bowel obstruction (3) Malignant neoplasm metastatic from bladder (4) Bladder cancer (5) Acute kidney injury (6) Complicated UTI (urinary tract infection) (7) S/P colostomy Surgeon: Adelso José Security Control Assessor(s): Please refer to our records Procedure: Transverse loop colostomy Findings: Colon obstruction Complications: None Specimen(s) removed: None Estimated blood loss: Minimum Anesthesia: General Drains: None IVF Patient to: PACU Patient Condition: Good Implant/Devices: SEE IMPLANT LOG (if applicable) Date/Time of Procedure: SEE SURGICAL CARE RECORD Adelso José MD Sep 26, 2017 20:58
[2017-09-26] MEDS ORDERED: DOCUSATE SODIUM 50 MG/SENNA 8.6 MG TAB PO SCH (21:00)
[2017-09-26] MEDS: SODIUM CHLORIDE 0.9% FLUSH 10 ML FLUSH IV FLUSH SCH (21:00)
--- NOTE | 2017-09-26 21:05 | MP ---
cc: CHANI JOSÉ DATE OF SURGERY: 09/26/2017 PREOPERATIVE DIAGNOSIS: Obstructing pelvic mass of the distal sigmoid and rectal area in need of diverting colostomy. POSTOPERATIVE DIAGNOSIS Obstructing pelvic mass of the distal sigmoid and rectal area in need of diverting colostomy. PROCEDURE Diverting colostomy transverse. ANESTHESIA General SURGEON Dr. José. INDICATIONS: This is an unfortunate 77 year-old gentleman who has obstructing pelvic mass of the distal sigmoid, rectal area. He is requiring a diversion. DESCRIPTION OF PROCEDURE: The patient was placed on the operating room table after anesthesia. His abdomen is prepped with Betadine after the urostomy bag was removed, and a 4x4 bandage was applied to keep it from leaking. The abdomen was prepped with Betadine. Then we did a time out. We made an incision about 5 cm below the xiphoid and 2 cm above the umbilicus, making a small incision in the midline and through the abdomen. We dilated the transverse colon to be palpated. It is easily brought up in the midline. We make a small opening in the mesentery of the transverse colon and placed a T-bar fastener to elevate the transverse colon. We then close the fascia with a #1 PDS leaving enough open space for the loop colostomy. The area was then matured opening along the tinea in horizontal fashion and securing it to the skin. The remainder of the skin is closed with 3-0 Vicryl. The appliance is then applied and secured in place. We were able to manually remove some stool from both proximal and distal segment. The ostomy is nice and pink. The urostomy bag is then replaced as well as the colostomy bag and then the patient returned to the Recovery Room, extubated. I talked to the about the findings. MD CAMILA Bethea/SUJATA /8:32 PM /8:42 PM
--- NOTE | 2017-09-26 21:05 | MB ---
cc: MARYCHANI Ferreira DATE OF CONSULTATION: 09/26/2017 REASON FOR CONSULTATION: Obstructing distal colon from bladder cancer. HISTORY This is a 77-year-old gentleman who had bladder cancer requiring resection. He had radiation as well and unfortunately developed recurrence and encasement of his distal colon tumor and is slowly becoming obstructed. He is requiring a diverting colostomy. I had asked Dr. Amezquita to see the patient as well, to see if he was a candidate for rectal stent to alleviate this obstruction but the amount of dilatation, he is not. He is having increasing pain. He recently was treated up at [place]. PAST MEDICAL HISTORY: 1. Stage IV bladder cancer. 2. Prostate cancer. 3. Some right shoulder surgery. 4. Bladder resection, has a urostomy in the right lower quadrant. REVIEW OF SYSTEMS: No cardiac or pulmonary issues. He has had some increasing abdominal pain over the last year or so, becoming worse the last three months. He has had problems with bowel activity as well. MEDICATIONS: All included in the chart, will not be repeated. PHYSICAL EXAMINATION: He is a well-nourished gentleman in no apparent distress. He points to his abdomen where it is tender. CHEST: Clear. HEART: Regular rate. ABDOMEN: Distended with soreness and tenderness to palpation, right upper and right lower side. He has a functional urostomy on the right side. He has a small incisional hernia in the midline. There is a midline incision. EXTREMITIES: Moves all extremities well, no clubbing, cyanosis or edema. NEUROLOGIC: Alert, oriented. LABORATORY DATA White count of 17, H&H 9 and 29. Chemistry: Showed a creatinine of 2.3. X-RAYS: CT scan shows the tumor encasing the distal colon, rectal area. ASSESSMENT: The patient is a 77-year-old gentleman with distal colon obstruction secondary to recurrent bladder cancer status post radiation therapy, bladder resection, urostomy, slightly anemic and slightly dehydrated. I have asked Dr. Amezquita to see him in consultation to see if he could have a stent placed, he is not a candidate. I discussed in detail with the patient and his about planning to do a diversion colostomy which they are aware, and wish to proceed. The patient agrees. Will proceed to the operating room. MD CAMILA Bethea/SUJATA /8:28 PM /8:35 PM [facility]
[2017-09-26] MEDS: TEMAZEPAM 15 MG CAP PO PRN (22:26)
[2017-09-27] VITALS (8 sets, daily range): BP systolic 137–177; BP diastolic 69–76; PULSE 72–105; RESP 16–21; TEMP 95.4–99.2; O2SAT 92–97
[2017-09-27] MEDS: SODIUM CHLOR 0.9% 1000 ML INJ 1,000 ML IV SCH ×4 (00:05→16:19)
--- NOTE | 2017-09-27 08:52 | HHI.PR ---
Subjective Remarks C/R Surg afebrile, VSS colostomy draining UO good Objective - Vital Signs Date Time Temp Pulse Resp B/P (MAP) Pulse Ox O2 Delivery O2 Flow Rate FiO2 09/27/17 04:38 99.2 93 18 137/70 (92) 96 09/26/17 21:00 Room Air 09/26/17 20:45 2 09/26/17 13:00 21 Result Diagram: 09/26/17 1038 09/26/17 1038 Objective Remarks PE alert Abd - softer, stoma functioning A/P Assessment and Plan Imp: stable post-op OOB will see Jamin Small MD Sep 27, 2017 08:52
--- NOTE | 2017-09-27 09:13 | HHI.PR ---
Subjective Subjective Notes Had uneventful night Mild pain this AM Objective Vitals/I&O Vital Signs Date Time Temp Pulse Resp B/P (MAP) Pulse Ox O2 Delivery O2 Flow Rate FiO2 09/27/17 04:38 99.2 93 18 137/70 (92) 96 09/26/17 21:00 Room Air 09/26/17 20:45 2 09/26/17 13:00 21 Labs Laboratory Tests Test 09/26/17 10:38 White Blood Count 17.0 Red Blood Count 3.38 Hemoglobin 9.7 Hematocrit 29.8 Mean Corpuscular Volume 88.2 Mean Corpuscular Hemoglobin 28.6 Mean Corpuscular Hemoglobin Concent 32.5 Red Cell Distribution Width 17.1 Platelet Count 527 Mean Platelet Volume 6.4 Neutrophils (%) (Auto) 86.8 Lymphocytes (%) (Auto) 5.0 Monocytes (%) (Auto) 7.3 Eosinophils (%) (Auto) 0.6 Basophils (%) (Auto) 0.3 Neutrophils # (Auto) 14.8 Lymphocytes # (Auto) 0.9 Monocytes # (Auto) 1.2 Eosinophils # (Auto) 0.1 Basophils # (Auto) 0.1 CBC Comment DIFF FINAL Differential Comment Blood Urea Nitrogen 63 Creatinine 2.30 Random Glucose 170 Total Protein 7.3 Albumin 2.9 Calcium Level 9.4 Alkaline Phosphatase 60 Aspartate Amino Transf (AST/SGOT) 8 Alanine Aminotransferase (ALT/SGPT) 22 Total Bilirubin 0.3 Sodium Level 138 Potassium Level 4.8 Chloride Level 107 Carbon Dioxide Level 20.1 Anion Gap 11 Estimat Glomerular Filtration Rate 28 Lipase 104 Cardiovascular: Regular Lungs: Clear Abdomen: Other (see below ) Extremities: Other (mild generalized edema ) Narrative Exam urostomy ----working well Colostomy-- stoma pink; stool in appliance Abd soft; minimal tenderness with palpation A/P Assessment and Plan 77 year old male POD1 diverting colostomy for obstructing pelvic mass of the distal sigmoid and rectal area -+ stool in colostomy -Colostomy RN consult -Clear liquids -Pain control---[place] and Morphine -OOB and mobilize -PT eval and treat Lizzeth Faulkner Sep 27, 2017 09:13
[2017-09-27] MEDS: ACETAMINOPHEN/HYDROcodone 325 MG/10 MG TAB PO PRN ×3 (09:37→21:02)
[2017-09-27] MEDS: SODIUM CHLORIDE 0.9% FLUSH 10 ML FLUSH IV FLUSH SCH ×2 (09:39→23:20)
[2017-09-27 10:29] LABS: ALBUMIN 2.5 GM/DL (3.4-5.0); ALT (GPT) 17 U/L (12-78); AST (GOT) 10 U/L (15-37); BICARBONATE 19.6 MEQ/L (21.0-32.0); BLOOD UREA NITROGEN 40 MG/DL (7-18); CALCIUM 8.7 MG/DL (8.5-10.1); CHLORIDE 116 MEQ/L (98-107); CREATININE 1.25 MG/DL (0.60-1.30); GLOMERULAR FILTRATION RATE 56 ML/MIN (>89); GLUCOSE,RANDOM 141 MG/DL (74-106); SODIUM (NA) 142 MEQ/L (136-145)
[2017-09-27 10:31] LABS: ALKALINE PHOSPHATASE 51 U/L (45-117); TOTAL BILIRUBIN ADULT 0.3 MG/DL (0.2-1.0); TOTAL PROTEIN 6.5 GM/DL (6.4-8.2)
--- NOTE | 2017-09-27 14:06 | HHI.PR ---
Subjective Remarks Status post resection of pelvic mass and a known history of bladder cancer. Complaining of diarrhea. Ostomy bag is full on exam. Care plan discussed with patient and spouse at bedside Objective Vitals Vital Signs Date Time Temp Pulse Resp B/P (MAP) Pulse Ox O2 Delivery O2 Flow Rate FiO2 09/27/17 13:21 93 09/27/17 12:00 95.4 72 16 162/72 (102) 92 09/27/17 08:00 97.1 100 21 164/76 (105) 97 09/27/17 04:38 99.2 93 18 137/70 (92) 96 09/27/17 00:00 98.5 94 18 149/69 (95) 96 09/26/17 21:00 98.5 103 19 154/67 (96) 96 Room Air 09/26/17 20:45 101 19 164/70 (101) 100 Nasal Cannula 2 09/26/17 20:42 106 16 177/75 (109) 98 Nasal Cannula 2 09/26/17 20:37 98.0 102 15 179/72 (107) 98 Nasal Cannula 2 09/26/17 20:00 96.2 100 18 160/68 (98) 95 09/26/17 18:46 Room Air 09/26/17 18:46 98.1 94 18 157/71 (99) 94 09/26/17 16:00 97.1 103 17 143/66 (91) 97 09/26/17 14:28 I/O 09/26/17 09/26/17 09/26/17 09/27/17 09/27/17 09/27/17 07:00 15:00 23:00 07:00 15:00 23:00 Intake Total 1600 ml 2375 ml 1000 ml Output Total 610 ml 1300 ml Balance 990 ml 1075 ml 1000 ml Intake IV Total 100 ml 2375 ml 1000 ml Other 1500 ml Output Urine Total 450 ml 1300 ml Stool Total 150 ml 0 ml Estimated Blood Loss 10 ml Result Diagram: 09/26/17 1038 09/27/17 0928 Other Results Bowel resection with colostomy Imaging Last Impressions Abdomen/Pelvis CT 09/26/17 1028 Signed Impressions: Service Date/Time: Tuesday, September 26, 2017 11:08 - CONCLUSION: 1. Central and right sided pelvic mass causing luminal constriction of the sigmoid colon and rectum preventing evacuation of stool from the colon. 2. 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 3. Cortical distention of the cecum with impacted stool throughout the colon. 4. Status post ureteroileal diversion. 5. Stable 6 mm nodule right lung base. Marty White MD Objective Remarks GENERAL: This is a well-nourished, well-developed patient, in no apparent distress. CARDIOVASCULAR: Regular rate and rhythm without murmurs, gallops, or rubs. RESPIRATORY: Clear to auscultation. Breath sounds equal bilaterally. No wheezes , rales, or rhonchi. GASTROINTESTINAL: Urostomy and colostomy in place MUSCULOSKELETAL: Extremities without clubbing, cyanosis, or edema. NEURO: Alert & Oriented x4 to person, place, time, situation. Moves all ext x4 Procedures POD1 diverting colostomy for obstructing pelvic mass of the distal sigmoid and rectal area A/P Problem List: (1) Large bowel obstruction ICD Code: K56.609 - Unspecified intestinal obstruction, unspecified as to partial versus complete obstruction Status: Acute Plan: The patient with known history of bladder cancer, status post bowel resection with colostomy placement. Good bowel movements and ostomy bag and likely residual fecal matter in remnant of the colon. Patient continues to improve Continue IV morphine, clear liquid diet Deena Eastman MD Sep 27, 2017 14:06
--- NOTE | 2017-09-27 14:06 | HHI.FF ---
Face to Face Verification Diagnosis: (1) Bladder cancer (2) Malignant neoplasm metastatic from bladder (3) Large bowel obstruction Physical Therapy Order: Evaluate and Treat, Improve ambulation Home Health Nursing Order: Wound care and dressing changes Nursing assessment with vital signs I have seen patient Juan Foley on 09/27/17. My clinical findings support the need for the requested home health care services because: Limited ability to care for self High risk of falls I certify that my clinical findings support that this patient is homebound because: Impaired cognitive ability/safety Unsteady gait/balance Deena Eastman MD Sep 27, 2017 14:06
--- NOTE | 2017-09-27 14:59 | EKG ---
Date Performed: 09/26/2017 Time Performed: 18:10:23 PTAGE: 77 years EKG: Sinus rhythm WITH FIRST DEGREE AV BLOCK RIGHT BUNDLE BRANCH BLOCK LEFT ANTERIOR FASCICULAR BLOCK ABNORMAL ECG NO PREVIOUS TRACING DOCTOR: Gio Jones Interpretating Date/Time 09/27/2017 14:58:13
[2017-09-27] MEDS: MORPHINE SULFATE 2 MG/ML INJ IV PUSH PRN (18:27)
[2017-09-27] MEDS: TEMAZEPAM 15 MG CAP PO PRN (23:20)
[2017-09-28] VITALS (7 sets, daily range): BP systolic 163–171; BP diastolic 74–79; PULSE 100–108; RESP 18–23; TEMP 95.4–98.7; O2SAT 91–99
[2017-09-28] MEDS: SODIUM CHLOR 0.9% 1000 ML INJ 1,000 ML IV SCH ×3 (02:54→23:31)
[2017-09-28] MEDS: ACETAMINOPHEN/HYDROcodone 325 MG/10 MG TAB PO PRN ×3 (09:25→22:33)
[2017-09-28] MEDS: SODIUM CHLORIDE 0.9% FLUSH 10 ML FLUSH IV FLUSH SCH ×2 (09:26→22:33)
--- NOTE | 2017-09-28 11:12 | HHI.PR ---
Subjective Subjective Notes Patient doing well C/o diarrhea Wants to try some lunch today Objective Vitals/I&O Vital Signs Date Time Temp Pulse Resp B/P (MAP) Pulse Ox O2 Delivery O2 Flow Rate FiO2 09/28/17 08:00 97.5 100 21 163/79 (107) 99 09/27/17 16:09 21 09/26/17 21:00 Room Air 09/26/17 20:45 2 Cardiovascular: Regular Lungs: Clear Abdomen: Other (see below ) Narrative Exam urostomy ----working well Colostomy-- stoma pink; stool in appliance Abd soft; minimal tenderness with palpation A/P Assessment and Plan 77 year old male POD2 diverting colostomy for obstructing pelvic mass of the distal sigmoid and rectal area -+ stool in colostomy -Colostomy RN consult -Advance to soft diet -Pain control---[place] and Morphine -OOB and mobilize -PT eval and treat -[facility] for continued colostomy care and teaching Attending Statement The exam, history, and the medical decision-making described in the above note were completed with the assistance of the mid-level provider. I reviewed and agree with the findings presented. I attest that I had a [id number] encounter with the patient on the same day, and personally performed and documented my assessment and findings in the medical record. s/p diverting colostomy abdominal exam stable postop, no peritonitis or guarding advance diet Lizzeth Faulkner Sep 28, 2017 11:12 Jamin Rosales MD Sep 28, 2017 18:27
--- NOTE | 2017-09-28 13:48 | HHI.PR ---
Subjective Remarks patient seen today in follow-up for colostomy status post pelvic resection from tumor. Overall improved. Ostomy working well. Will need teaching prior to discharge. Care plan discussed with patient and surgical seen Objective Vitals Vital Signs Date Time Temp Pulse Resp B/P (MAP) Pulse Ox O2 Delivery O2 Flow Rate FiO2 09/28/17 12:00 98.7 102 18 168/76 (106) 96 09/28/17 08:00 97.5 100 21 163/79 (107) 99 09/28/17 04:00 98.0 108 20 171/77 (108) 98 09/28/17 00:00 97.0 100 20 166/74 (104) 96 09/27/17 20:00 96.0 105 21 157/75 (102) 95 09/27/17 16:09 93 21 09/27/17 16:00 96.5 102 17 177/76 (109) 95 I/O 09/27/17 09/27/17 09/27/17 09/28/17 09/28/17 09/28/17 07:00 15:00 23:00 07:00 15:00 23:00 Intake Total 2375 ml 1000 ml 595 ml Output Total 1300 ml 1702 ml 1500 ml 500 ml Balance 1075 ml 1000 ml -1107 ml -1500 ml -500 ml Intake Oral 595 ml IV Total 2375 ml 1000 ml Output Urine Total 1300 ml 1700 ml 500 ml 500 ml Stool Total 0 ml 2 ml 1000 ml # Bowel Movements 2 5 Result Diagram: 09/26/17 1038 09/27/17 0928 Imaging Last Impressions Abdomen/Pelvis CT 09/26/17 1028 Signed Impressions: Service Date/Time: Tuesday, September 26, 2017 11:08 - CONCLUSION: 1. Central and right sided pelvic mass causing luminal constriction of the sigmoid colon and rectum preventing evacuation of stool from the colon. 2. 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 3. Cortical distention of the cecum with impacted stool throughout the colon. 4. Status post ureteroileal diversion. 5. Stable 6 mm nodule right lung base. Marty White MD Objective Remarks GENERAL: This is a well-nourished, well-developed patient, in no apparent distress. CARDIOVASCULAR: Regular rate and rhythm without murmurs, gallops, or rubs. RESPIRATORY: Clear to auscultation. Breath sounds equal bilaterally. No wheezes , rales, or rhonchi. GASTROINTESTINAL: Urostomy and colostomy in place MUSCULOSKELETAL: Extremities without clubbing, cyanosis, or edema. NEURO: Alert & Oriented x4 to person, place, time, situation. Moves all ext x4 Procedures diverting colostomy for obstructing pelvic mass of the distal sigmoid and rectal area A/P Problem List: (1) Large bowel obstruction ICD Code: K56.609 - Unspecified intestinal obstruction, unspecified as to partial versus complete obstruction Status: Acute Plan: The patient with known history of bladder cancer, status post bowel resection with colostomy placement. Good bowel movements and ostomy bag and likely residual fecal matter in remnant of the colon. Patient continues to improve Continue IV morphine, diet advanced Discharge Planning Patient will need teaching prior to discharge with home health care Likely discharge in a.m. pending surgical clearance Deena Eastman MD Sep 28, 2017 13:48
[2017-09-28] MEDS: TEMAZEPAM 15 MG CAP PO PRN (23:29)
[2017-09-29] VITALS: BP 123/76; PULSE 102; RESP 17; TEMP 97.5; O2SAT 96
[2017-09-29] MEDS: ACETAMINOPHEN/HYDROcodone 325 MG/10 MG TAB PO PRN (06:17)
[2017-09-29 08:00] VITALS: BP 126/65; PULSE 101; RESP 18; TEMP 97.5; O2SAT 97
[2017-09-29] MEDS: SODIUM CHLORIDE 0.9% FLUSH 10 ML FLUSH IV FLUSH SCH (09:26)
--- NOTE | 2017-09-29 09:31 | PD.WCN.NOT ---
Wound Consult Description: Consult for NEW OSTOMY TEACHING patient has two per Dr José Communicated with: Patient PAULETTE Lux Recommendation: Empty pouch when 1/3-1/2 full of effluent (stool) Cleanse the bottom of the pouch after emptying to avoid odor and leaks Change appliance 4" cut to fit every 5 days and PRN before leaks occur Once bar is removed patient may use a 2 3/4" cut to fit or moldable appliance for stoma Additional Information: Patient seen on [address] [place] [address] for ostomy assessment and teaching. Ostomy Type: Colostomy (Loop with bar in place), Other (Patient also has a urostomy that is not new.) Surgeon: Adelso José MD Date of Surgery: Sep 26, 2017 Complete: Education materials, Rx (Patient is established with [facility], prescription left on chart for size purposes.) Educated patient on: Cleansing and properly closing the bottom of the pouch to avoid odor and leaks Changing the appliance every 5-7 days and PRN Emptying the pouch when 1/3-1/2 full Additional information Patient seen on [address] [place] [address] for ostomy assessment and teaching. Patient has a urostomy as well. Patient states that he is well educated on changing his urostomy appliance and normally uses a 2 piece appliance through [facility] which is where he will also obtain his colostomy appliances when discharged. A 4 " cut to fit appliance is intact and noted to left side abdomen with bar in place. The pouch was full of soft brown stool and was emptied by director underwriter sales with [employer] notified of output for I&O's. Pouch is noted with stool on the closure part causing the pouch not to close properly and has an odor that is present when entering patient room. Patient was educated on the need to cleanse the bottom of the pouch for proper closure and prevent odor. Supplies were ordered for urostomy and colostomy. Stoma is functioning at this time with soft brown effluent noted covering entire stoma and jerod that is not visualized at this time. Bernadine Argueta [facility] Sep 29, 2017 09:31
[2017-09-29 09:53] VITALS: O2SAT 97
[2017-09-29 12:00] VITALS: BP 129/69; PULSE 98; RESP 18; TEMP 96.9; O2SAT 98
--- NOTE | 2017-09-29 14:31 | HHI.PR ---
Subjective Subjective Notes Resting in bed Doesn't remember anyone coming to teach him about colostomy RN Sakina informed me that MARIA ISABEL Colindres with Colostomy Wound Team spent about an hour educating Objective Vitals/I&O Vital Signs Date Time Temp Pulse Resp B/P (MAP) Pulse Ox O2 Delivery O2 Flow Rate FiO2 09/29/17 12:00 96.9 98 18 129/69 (89) 98 09/27/17 16:09 21 09/26/17 21:00 Room Air 09/26/17 20:45 2 Cardiovascular: Regular Lungs: Clear Abdomen: Other (see below ) Extremities: No edema Narrative Exam urostomy ----working well Colostomy-- stoma pink; stool in bag Abd soft; minimal tenderness with palpation A/P Assessment and Plan 77 year old male POD3 diverting colostomy for obstructing pelvic mass of the distal sigmoid and rectal area -+ stool in colostomy -Colostomy RN consult -Advance to soft diet -Pain control with [place] -OOB and mobilize -PT eval and treat -[facility] for continued colostomy care and teaching - clear for DC -Follow up with Dr. José on Oct 10 at 1:20PM Lizzeth Faulkner Sep 29, 2017 14:31
[2017-09-29] MEDS: SODIUM CHLOR 0.9% 1000 ML INJ 1,000 ML IV SCH (14:33)
[2017-09-29] MEDS ORDERED: HYDR-3516 PO (14:43)
--- NOTE | 2017-09-29 14:44 | HHI.FF ---
Face to Face Verification Diagnosis: (1) Large bowel obstruction Home Health Nursing Order: Medical education Signs/symptoms of disease process Wound care and dressing changes Instructions: ostomy teaching and dressing changes I have seen patient Juan Foley on 09/29/17. My clinical findings support the need for the requested home health care services because: Ltd mobility - disease progression Limited ability to care for self I certify that my clinical findings support that this patient is homebound because: Post-op weakness Karley Cavanaugh MD Sep 29, 2017 14:44
--- NOTE | 2017-09-29 14:45 | HHI.DS ---
Discharge Summary Admission Date Sep 26, 2017 at 12:43 Discharge Date: Sep 29, 2017 Admitting Diagnosis Large Bowel Obstruction. (1) Large bowel obstruction ICD Code: K56.609 - Unspecified intestinal obstruction, unspecified as to partial versus complete obstruction Diagnosis: Principal Status: Acute Procedures diverting colostomy for obstructing pelvic mass of the distal sigmoid and rectal area Brief History - From Admission The patient is a very pleasant 77-year-old male with the past medical history of prostate cancer with radiation, cystectomy for bladder cancer with urostomy. The patient is with stage IV bladder cancer and is following with Dr. Martino as outpatient hematology oncology, last chemotherapy was received 3 weeks ago. The patient has recurrence of the tumor in the pelvis. He has associated abdominal pain, intractable nausea and vomiting and constipation. These symptoms are on and off however for the past 4 days abdominal pain is not relieved by pain medications and nausea vomiting his intractable. He has very later stool and minimum amount of gas per rectum. There is no rectal bleeding. Imaging shows worsening obstruction of his rectosigmoid due to pelvic mass. Dr. José was consulted however the patient was seen by Dr. Amezquita. Recommends transferring patient to [facility]. Otherwise he denies any chest pain, shortness of breath, palpitations, headaches. No motor deficit. No fever or chills. CBC/BMP: 09/26/17 1038 09/27/17 0928 Significant Findings Laboratory Tests Test 09/27/17 09:28 Blood Urea Nitrogen 40 MG/DL (7-18) Random Glucose 141 MG/DL (74-106) Albumin 2.5 GM/DL (3.4-5.0) Aspartate Amino Transf (AST/SGOT) 10 U/L (15-37) Chloride Level 116 MEQ/L (98-107) Carbon Dioxide Level 19.6 MEQ/L (21.0-32.0) Estimat Glomerular Filtration Rate 56 ML/MIN (>89) Imaging Last Impressions Abdomen/Pelvis CT 09/26/17 1028 Signed Impressions: Service Date/Time: Tuesday, September 26, 2017 11:08 - CONCLUSION: 1. Central and right sided pelvic mass causing luminal constriction of the sigmoid colon and rectum preventing evacuation of stool from the colon. 2. 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 3. Cortical distention of the cecum with impacted stool throughout the colon. 4. Status post ureteroileal diversion. 5. Stable 6 mm nodule right lung base. Marty White MD PE at Discharge GENERAL: This is a well-nourished, well-developed patient, in no apparent distress. CARDIOVASCULAR: Regular rate and rhythm without murmurs, gallops, or rubs. RESPIRATORY: Clear to auscultation. Breath sounds equal bilaterally. No wheezes , rales, or rhonchi. GASTROINTESTINAL: Urostomy and colostomy in place with stool present MUSCULOSKELETAL: Extremities without clubbing, cyanosis, or edema. Pt update on day of discharge Follow-up for large bowel obstruction status post colostomy placement Patient stated that she did not have any colostomy teaching. I spoke with patient's nurse and in the medical records stated that wound care nurse/ostomy nurse spent about an hour with patient and teaching him these things. He also stated that he continues have bowel movements and stated that this is not normal. Otherwise he has no other complaints. He denies any abdominal pain and tolerating oral intake. Denies any nausea or vomiting. Remains afebrile. Extensive time was spent with patient educated him on his hospitalization. Hospital Course This is a 77-year-old male who presented with large bowel obstruction. General surgeon consulted in which he had a bowel resection with colostomy in place. During his hospitalization colostomy was functioning and he was tolerating oral intake. Patient also had colostomy teaching with ostomy nurse. His pain was controlled with oral medication. He was cleared by general surgeon on the day of discharge. Pt Condition on Discharge: Stable Discharge Disposition: Disch w/ Home Health Serv Discharge Time: > 30 minutes Discharge Instructions DIET: Follow Instructions for: Heart Healthy Diet Activities you can perform: Regular-No Restrictions Follow up Referrals: PCP Follow-up - 1 Week PCP Follow-up Surgical - 10/10/17 with Adelso José MD appt set for Oct 10 at 1:20PM Surgical New Medications: Hydrocodone/Acetaminophen (Hydrocodone-Acetamin 5-325 mg) 5 Mg-325 Mg Tablet 1 TAB PO Q4H PRN for moderate to severe pain, #20 TAB 0 Refills Continued Medications: Megestrol Acetate (Megestrol Acetate) 800 Mg/20 Ml (20 Ml) Oral.susp MG DAILY [?Heart Pill] () Discontinued Medications: Oxycodone-Acetaminophen (Percocet) 10-325 mg Tab 0.5 TAB PO Q6H PRN for PAIN, #1 TAB 0 Refills Do not give if patient is confused or sleepy. Prochlorperazine Maleate (Prochlorperazine Maleate) 10 Mg Tab 10 MG PO Q4-6H, TAB 0 Refills Karley Cavanaugh MD Sep 29, 2017 14:45
== END 2017-09-29 16:17 | disposition home health service (06) | DRG 330 ==
LOC: PHED 09:52 → PHEDA 12:43 → N07B 15:06
PROVIDERS: ADMIT Family Medicine; ATTEND Family Medicine
PROC: 0D1L0Z4 Bypass Transverse Colon to Cutaneous, Open Approach (ICD-10-PCS; principal; 2017-09-26 19:25)
DX: K56.609 Unspecified intestinal obstruction, unspecified as to partial versus complete obstruction (principal); N17.9 Acute kidney failure, unspecified; C79.89 Secondary malignant neoplasm of other specified sites; I48.91 Unspecified atrial fibrillation; N39.0 Urinary tract infection, site not specified; E11.9 Type 2 diabetes mellitus without complications; I10 Essential (primary) hypertension; D64.9 Anemia, unspecified; E86.0 Dehydration; Z93.6 Other artificial openings of urinary tract status; E78.00 Pure hypercholesterolemia, unspecified; M19.90 Unspecified osteoarthritis, unspecified site; F41.9 Anxiety disorder, unspecified; Z85.46 Personal history of malignant neoplasm of prostate; Z85.51 Personal history of malignant neoplasm of bladder; Z92.3 Personal history of irradiation; Z79.82 Long term (current) use of aspirin; Z87.891 Personal history of nicotine dependence
CPT/HCPCS: 74176; 80053; 83690; 85025; 93005; 94150; 96374; 96375; J0330; J0690; J1100; J1170; J1885; J2270; J2370; J2405; J7030

== ENCOUNTER 2017-10-04 10:00 | Observation (INO) | payer MEDICARE, OTHER ==
[2017-10-04] VITALS (8 sets, daily range): BP systolic 124–142; BP diastolic 60–70; PULSE 90–113; RESP 15–20; TEMP 95.7–98.3; O2SAT 97–100
[~2017-10-04] VITALS: Ht 193 cm; Wt 77.3 kg
[~2017-10-04 10:00] MED LIST changes: -CIPR500T2 PO; +HYDR-3516 PO; -LACTCHW3 CHEW; -LOPE2CAP2 PO; -LORA0.5T PO; -METR1TAB76 PO; -NITR100C4 PO; -PERC10TA27 PO; -PROC10TA PO; -TYLE325T PO; +[UNRECOGNIZED DRUG - REMARK]
[2017-10-04] MEDS ORDERED: SODIUM CHLOR 0.9% 1000 ML INJ 1,000 ML IV ONE (10:15)
[2017-10-04 10:49] LABS: AUTOMATED NEUTROPHIL # 15.1 TH/MM3 (1.8-7.7); BASOPHIL # 0.1 TH/MM3 (0-0.2); BASOPHIL % 0.5 % (0.0-2.0); EOSINOPHIL # 0.2 TH/MM3 (0-0.4); EOSINOPHIL % 1.4 % (0.0-4.0); HEMATOCRIT 36.8 % (39.0-51.0); HEMOGLOBIN 11.7 GM/DL (13.0-17.0); LYMPH % 6.5 % (9.0-44.0); LYMPHOCYTE # 1.1 TH/MM3 (1.0-4.8); MEAN CELL VOLUME 90.2 FL (80.0-100.0); MEAN CORPUSCULAR HEMOGLOBIN 28.5 PG (27.0-34.0); MEAN CORPUSCULAR HGB CONC 31.7 % (32.0-36.0); MEAN PLATELET VOLUME 6.7 FL (7.0-11.0); MONO % 5.1 % (0.0-8.0); MONOCYTE # 0.9 TH/MM3 (0-0.9); NEUT % 86.5 % (16.0-70.0); PLATELET COUNT 536 TH/MM3 (150-450); RED BLOOD COUNT 4.08 MIL/MM3 (4.50-5.90); RED CELL DISTRIBUTION WIDTH 16.7 % (11.6-17.2); WHITE BLOOD COUNT 17.5 TH/MM3 (4.0-11.0)
--- NOTE | 2017-10-04 11:01 | PD ---
HPI Chief Complaint: General Weakness Time Seen by Provider: 10:09 Travel History International Travel<30 days: No Contact w/Intl Traveler<30days: No Traveled to known affect area: No History of Present Illness HPI 77-year-old man, history of bladder cancer status post cystectomy and urostomy, now with recurrent pelvic tumor complicated by large bowel obstruction, status post diverting colostomy 09/[address] José, return to the emergency Department now with abdominal pain, weakness. He states he never really felt improved following the surgery and has had ongoing pain and weakness. His last chemotherapy was about 3 weeks ago. He was following with Dr. Martino. He states he's had loose watery output from his ostomy, and his rectum. He states this is worse when he eats and has a result he has not had any appetite. No vomiting. No other complaints. History Past Medical History Narrative Medical Stage IV bladder CA, with local recurrence History of Prostate CA Tetanus Vaccination: < 5 Years Social History Alcohol Use: No (DENIES) Tobacco Use: No (QUIT 1984) Allergies-Medications (Allergen,Severity, Reaction): Coded Allergies: No Known Allergies (Unverified , 10/04/17) Reported Meds & Prescriptions Reported Meds & Active Scripts Active Hydrocodone-Acetamin 5-325 mg (Hydrocodone/Acetaminophen) 5 Mg-325 Mg Tablet 1 Tab PO Q4H PRN Reported [?Heart Pill] Megestrol Acetate 800 Mg/20 Ml (20 Ml) Oral.susp Mg DAILY Review of Systems Except as stated in HPI: all other systems reviewed are Neg Physical Exam Narrative GENERAL: 77-year-old man, ill-appearing, pale, diaphoretic. SKIN: Clammy and pale HEAD: Atraumatic. Normocephalic. EYES: Pupils equal and round. No scleral icterus. No injection or drainage. ENT: No nasal bleeding or discharge. Mucous membranes pink and moist. NECK: Trachea midline. No JVD. CARDIOVASCULAR: Regular rate and rhythm. No murmur appreciated. RESPIRATORY: No accessory muscle use. Clear to auscultation. Breath sounds equal bilaterally. GASTROINTESTINAL: Flat and soft. Mild tenderness. Colostomy in the midline productive of thin green stool. Urostomy in the right side with yellow urine. MUSCULOSKELETAL: No obvious deformities. No edema. NEUROLOGICAL: Awake and alert. No obvious cranial nerve deficits. Motor grossly within normal limits. Normal speech. PSYCHIATRIC: Appropriate mood and affect; insight and judgment normal. Data Data Last Documented VS Vital Signs Date Time Temp Pulse Resp B/P (MAP) Pulse Ox O2 Delivery O2 Flow Rate FiO2 10/04/17 10:48 91 20 124/70 (88) 97 Room Air 10/04/17 10:17 98.3 Orders Orders Sepsis Workup Initiated (10/04/17 ) Complete Blood Count With Diff (10/04/17 10:09) Comprehensive Metabolic Panel (10/04/17 10:09) Prothrombin Time / Inr (Pt) (10/04/17 10:09) Act Partial Throm Time (Ptt) (10/04/17 10:09) Lactic Acid Sepsis Protocol (10/04/17 10:09) Magnesium (Mg) (10/04/17 10:09) Troponin I (10/04/17 10:09) Urinalysis - C+S If Indicated (10/04/17 10:09) Blood Culture (10/04/17 10:09) Chest, Single Ap (10/04/17 10:09) Blood Glucose (10/04/17 10:09) Ecg Monitoring (10/04/17 10:09) Iv Access Insert/Monitor (10/04/17 10:09) Oximetry (10/04/17 10:09) Oxygen Administration (10/04/17 10:09) Ct Abd/Pel W Iv Contrast(Rout) (10/04/17 10:09) Sodium Chlor 0.9% 1000 Ml Inj (Ns 1000 M (10/04/17 10:15) Iohexol 350 Inj (Omnipaque 350 Inj) (10/04/17 12:29) Morphine Inj (Morphine Inj) (10/04/17 13:15) Hydromorphone Pf Inj (Dilaudid Pf Inj) (10/04/17 13:15) Consult Palliative Care (10/04/17 ) C Diff Toxin Pcr (10/04/17 13:08) Place In Observation (10/04/17 ) Vital Signs (Adult) Q4H (10/04/17 13:27) Activity Oob With Assistance (10/04/17 13:27) Senior Drafter / Telemetry .CONTINUOUS (10/04/17 13:27) Intake + Output BALJINDER.QSHIFT (10/04/17 13:27) Diet Regular Basic (10/04/17 Lunch) Sodium Chloride 0.9% Flush (Ns Flush) (10/04/17 13:30) Sodium Chloride 0.9% Flush (Ns Flush) (10/04/17 21:00) Ondansetron Inj (Zofran Inj) (10/04/17 13:30) Complete Blood Count With Diff (10/05/17 06:00) Pt Request For Service (10/04/17 13:27) Case Management Consult (10/04/17 13:27) Naloxone Inj (Narcan Inj) (10/04/17 13:30) Admit Order (Ed Use Only) (10/04/17 ) Labs Laboratory Tests Test 10/04/17 10:20 White Blood Count 17.5 TH/MM3 Red Blood Count 4.08 MIL/MM3 Hemoglobin 11.7 GM/DL Hematocrit 36.8 % Mean Corpuscular Volume 90.2 FL Mean Corpuscular Hemoglobin 28.5 PG Mean Corpuscular Hemoglobin Concent 31.7 % Red Cell Distribution Width 16.7 % Platelet Count 536 TH/MM3 Mean Platelet Volume 6.7 FL Neutrophils (%) (Auto) 86.5 % Lymphocytes (%) (Auto) 6.5 % Monocytes (%) (Auto) 5.1 % Eosinophils (%) (Auto) 1.4 % Basophils (%) (Auto) 0.5 % Neutrophils # (Auto) 15.1 TH/MM3 Lymphocytes # (Auto) 1.1 TH/MM3 Monocytes # (Auto) 0.9 TH/MM3 Eosinophils # (Auto) 0.2 TH/MM3 Basophils # (Auto) 0.1 TH/MM3 CBC Comment DIFF FINAL Differential Comment Prothrombin Time 10.7 SEC Prothromb Time International Ratio 1.1 RATIO Activated Partial Thromboplast Time 20.8 SEC Blood Urea Nitrogen 25 MG/DL Creatinine 1.37 MG/DL Random Glucose 130 MG/DL Total Protein 8.4 GM/DL Albumin 3.4 GM/DL Calcium Level 10.0 MG/DL Magnesium Level 2.1 MG/DL Alkaline Phosphatase 60 U/L Aspartate Amino Transf (AST/SGOT) 30 U/L Alanine Aminotransferase (ALT/SGPT) 76 U/L Total Bilirubin 0.3 MG/DL Sodium Level 139 MEQ/L Potassium Level 4.8 MEQ/L Chloride Level 110 MEQ/L Carbon Dioxide Level 20.4 MEQ/L Anion Gap 9 MEQ/L Estimat Glomerular Filtration Rate 51 ML/MIN Lactic Acid Level 1.9 mmol/L Troponin I LESS THAN 0.02 NG/ML MDM Medical Decision Making Medical Screen Exam Complete: Yes Emergency Medical Condition: Yes Interpretation(s) My review of EKG: Sinus tachycardia at a rate of 107, right bundle branch block , inferior Q waves could suggest left axis deviation and left anterior fascicular block or old inferior VT, no definite evidence of acute ischemia. Compared to previous EKG from this ever 21/03/2017 disposition of significant change. LABS: CBC remarkable for leukocytosis, mild anemia. CMP is remarkable for mildly elevated BUN and creatinine Lactate 1.9 Total protein is a little elevated Troponin normal Chest x-ray negative CT abdomen and pelvis: The chronic appearing pelvic mass 7.5 sutures in diameter similar to previous. Improvement constipation with colostomy. Differential Diagnosis Obstruction, abscess, enteritis or colitis, anemia, weakness, other Narrative Course Medical decision making 77-year-old man presents emergency department with weakness abdominal pain diarrhea and anorexia following diverting ostomy for large bowel obstruction from a local recurrence of bladder CA. He looks a little bit unwell. We'll check labs, CT, IV fluids. Some concern for enteritis or colitis, C. difficile. Reassess. FINAL: Patient interested in palliative care and hospice. Discussed with family. Patient goals of care seemed to be focused on comfort, and improving function. Palliative care consult was placed. Patient still with watery loose stools following hospitalization. Concern for C. difficile. We'll add test on. Patient be admitted for pain control, further evaluation for leukocytosis and concern for infection. Palliative care consult placed also. Spoke with Dr. Donis, who will admit patient. Diagnosis Primary Impression: Bladder cancer Additional Impression: Diarrhea Admitting Information Admitting Physician Requests: Gio Carbajal MD Oct 04, 2017 11:01
[2017-10-04 11:03] LABS: INTERNATIONAL NORMALIZED RATIO 1.1 RATIO; PROTHROMBIN TIME - PATIENT 10.7 SEC (9.8-11.6)
[2017-10-04 11:12] LABS: ALKALINE PHOSPHATASE 60 U/L (45-117); TOTAL BILIRUBIN ADULT 0.3 MG/DL (0.2-1.0); TOTAL PROTEIN 8.4 GM/DL (6.4-8.2); TROPONIN I LESS THAN 0.02 NG/ML (0.02-0.05)
[2017-10-04] MEDS ORDERED: MORPHINE SULFATE 4 MG/ML INJ IV PUSH ONE (11:15)
[2017-10-04 11:22] LABS: ALBUMIN 3.4 GM/DL (3.4-5.0); ALT (GPT) 76 U/L (12-78); AST (GOT) 30 U/L (15-37); BICARBONATE 20.4 MEQ/L (21.0-32.0); BLOOD UREA NITROGEN 25 MG/DL (7-18); CHLORIDE 110 MEQ/L (98-107); CREATININE 1.37 MG/DL (0.60-1.30); GLOMERULAR FILTRATION RATE 51 ML/MIN (>89); GLUCOSE,RANDOM 130 MG/DL (74-106); MAGNESIUM 2.1 MG/DL (1.5-2.5); SODIUM (NA) 139 MEQ/L (136-145)
--- NOTE | 2017-10-04 11:40 | RADRPT ---
EXAM DATE/TIME: 10/04/2017 10:18 [facility] COMPARISON: No previous studies available for comparison. INDICATIONS : Shortness of breath. MEDICAL HISTORY : Carcinoma, bladder. Hypertension. Anticoagulant therapy. Blocked right kidney. Diabetes. SURGICAL HISTORY : Colostomy. Prostatectomy. Urostomy. ENCOUNTER: Initial ACUITY: 1 day PAIN SCORE: 0/10 LOCATION: Bilateral chest FINDINGS: A single view of the chest demonstrates the lungs to be symmetrically aerated without evidence of mas s, infiltrate or effusion. The cardiomediastinal contours are unremarkable. Osseous structures are intact. CONCLUSION: 1. No acute cardiopulmonary disease. Bharathi Suarez MD on October 04, 2017 at 11:38 Board Certified Radiologist. This report was verified electronically.
[2017-10-04] MEDS ORDERED: IOHEXOL 350 MG/ML 10 ML VIAL (for RAD DIAG) IVCONTRAST ONE (12:29)
--- NOTE | 2017-10-04 12:48 | RADRPT ---
EXAM DATE/TIME: 10/04/2017 11:52 [facility] COMPARISON: No previous studies available for comparison. INDICATIONS : Abdominal pain IV CONTRAST: 95 cc Omnipaque 350 (iohexol) IV ORAL CONTRAST: No oral contrast ingested. RADIATION DOSE: 6.77 CTDIvol (mGy) MEDICAL HISTORY : Carcinoma, bladder. Hypertension. SURGICAL HISTORY : Prostatectomy. Urostomy ENCOUNTER: Initial ACUITY: 3 days PAIN SCALE: 8/10 LOCATION: lower quadrant TECHNIQUE: Volumetric scanning of the abdomen and pelvis was performed. Using automated exposure control and ad justment of the mA and/or kV according to patient size, radiation dose was kept as low as reasonably achievable to obtain optimal diagnostic quality images. DICOM format image data is available electro nically for review and comparison. FINDINGS: Right lower quadrant urostomy. There is presumably creation of an ostomy containing the colon in the midline anterior abdomen.. If t here is no surgery then this would represent a ventral hernia. Previous constipation is improved. There is a necrotic appearing mass in the central pelvis extending to the right side similar to prior exam from September 26. Lung bases demonstrate stable 6 mm nodule on the right. No consolidation or effusion. No acute findings in the liver, spleen, adrenals, kidneys or pancreas. CONCLUSION: 1. Necrotic appearing pelvic mass measuring up to 7.5 cm in diameter similar to September 26. 2. Improvement in constipation with creation of presumed colostomy in the central anterior abdominal wall as above. Urostomy unchanged. 3. No small bowel obstruction. Trace free fluid. No free air. Adelso Hatfield MD on October 04, 2017 at 12:33 Board Certified Radiologist. This report was verified electronically.
[2017-10-04] MEDS ORDERED: MORPHINE SULFATE 2 MG/ML INJ IV PUSH ONE (13:15)
[2017-10-04] MEDS ORDERED: HYDROmorphone HCL PF 2 MG/ML VIAL IVS ONE (13:15)
[2017-10-04] MEDS ORDERED: ONDANSETRON HCL 4 MG/2 ML VIAL IVP PRN (13:30)
[2017-10-04] MEDS ORDERED: NALOXONE HCL 0.4 MG/ML AMP IV PUSH PRN (13:30)
[2017-10-04] MEDS ORDERED: SODIUM CHLORIDE 0.9% FLUSH 10 ML FLUSH IV FLUSH PRN (13:30)
--- NOTE | 2017-10-04 14:04 | HHI.HP ---
[facility] Sandor Atkins M.D. Admission Diagnosis Weakness, Bladder CA, abdominal pain Diagnoses: Travel History International Travel<30 Days: No Contact w/Intl Traveler <30 Da: No Traveled to Known Affected Are: No History of Present Illness History from patient, ER physician from patient, and review of medical records. Patient reported that he came to the hospital because he was having pain all over, and he was having loss of appetite and has not eaten since discharge from hospital. Patient denies vomiting. That did have nausea. He reports his pain is in his abdomen, his, and everywhere. He stated he was not able to get out of bed much. That he did ambulate to bathroom at home. Denies any blood in his stool or urine. Patient was discharged from our hospital on September 29, 2017 after he had colostomy for large bowel obstruction. He stated that since discharge, he has not changed his colostomy bag at all. He reports he however continued to have stool per rectum and he thinks that that was diarrhea. Reports of subjective fevers. He so far has not had any home health care nurse at home. /partner stated she is arranging it. Review of Systems Except as stated in HPI: all other systems reviewed are Neg Past Family Social History Past Medical History prostate cancer 3 yrs ago - s/p prostatectomy and radiation bladder cancer 1 yr ago s/p cystectomy and chemotherapy- last dose 3 weeks ago htn dm afib Past Surgical History prostatectomy cystectomy bowel resection with colostomy placement Allergies: Coded Allergies: No Known Allergies (Unverified , 10/04/17) Family History none that he knows of Social History used to smoke for 20yrs, quit in 1984 no etoh or drug abuse Physical Exam Vital Signs Vital Signs Date Time Temp Pulse Resp B/P (MAP) Pulse Ox O2 Delivery O2 Flow Rate FiO2 10/04/17 10:48 91 20 124/70 (88) 97 Room Air 10/04/17 10:17 98.3 113 20 125/70 (88) 99 Room Air 10/04/17 10:17 113 99 Room Air 10/04/17 10:14 98.3 110 20 125/70 (88) 98 Room Air 10/04/17 10:14 97 Room Air 10/04/17 10:08 98.3 108 20 125/70 (88) 98 Physical Exam GENERAL: This is elderly gentleman, looks chronically ill, anxious SKIN: No rashes, ecchymoses or lesions. Cool and dry. HEAD: Atraumatic. Normocephalic. No temporal or scalp tenderness. EYES No scleral icterus. No injection or drainage. ENT: Nose without bleeding, purulent drainage or septal hematoma. . Airway patent. NECK: Trachea midline. No JVD CARDIOVASCULAR: Regular rate and rhythm without murmurs, gallops, or rubs. RESPIRATORY: Clear to auscultation. Breath sounds equal bilaterally. No wheezes , rales, or rhonchi. GASTROINTESTINAL: Abdomen soft, tenderness diffusely, nondistended. No guarding. Urostomy bag with clear urine. Colostomy bag with formed stool MUSCULOSKELETAL: Extremities without clubbing, cyanosis, or edema. No calf tenderness. NEUROLOGICAL: Awake and alert. Motor and sensory grossly within normal limits.Normal speech. Laboratory Laboratory Tests Test 10/04/17 10:20 White Blood Count 17.5 Red Blood Count 4.08 Hemoglobin 11.7 Hematocrit 36.8 Mean Corpuscular Volume 90.2 Mean Corpuscular Hemoglobin 28.5 Mean Corpuscular Hemoglobin Concent 31.7 Red Cell Distribution Width 16.7 Platelet Count 536 Mean Platelet Volume 6.7 Neutrophils (%) (Auto) 86.5 Lymphocytes (%) (Auto) 6.5 Monocytes (%) (Auto) 5.1 Eosinophils (%) (Auto) 1.4 Basophils (%) (Auto) 0.5 Neutrophils # (Auto) 15.1 Lymphocytes # (Auto) 1.1 Monocytes # (Auto) 0.9 Eosinophils # (Auto) 0.2 Basophils # (Auto) 0.1 CBC Comment DIFF FINAL Differential Comment Prothrombin Time 10.7 Prothromb Time International Ratio 1.1 Activated Partial Thromboplast Time 20.8 Blood Urea Nitrogen 25 Creatinine 1.37 Random Glucose 130 Total Protein 8.4 Albumin 3.4 Calcium Level 10.0 Magnesium Level 2.1 Alkaline Phosphatase 60 Aspartate Amino Transf (AST/SGOT) 30 Alanine Aminotransferase (ALT/SGPT) 76 Total Bilirubin 0.3 Sodium Level 139 Potassium Level 4.8 Chloride Level 110 Carbon Dioxide Level 20.4 Anion Gap 9 Estimat Glomerular Filtration Rate 51 Lactic Acid Level 1.9 Troponin I LESS THAN 0.02 Date/Time Source Procedure Growth Status 10/04/17 10:27 Blood Peripheral Aerobic Blood Culture Pending Received 10/04/17 10:27 Blood Peripheral Anaerobic Blood Culture Pending Received Result Diagram: 10/04/17 1020 10/04/17 1020 Imaging Last 48 hours Impressions Chest X-Ray 10/04/17 1009 Signed Impressions: Service Date/Time: Wednesday, October 04, 2017 10:18 - CONCLUSION: 1. No acute cardiopulmonary disease. Bharathi Suarez MD Abdomen/Pelvis CT 10/04/17 1009 Signed Impressions: Service Date/Time: Wednesday, October 04, 2017 11:52 - CONCLUSION: 1. Necrotic appearing pelvic mass measuring up to 7.5 cm in diameter similar to September 26. 2. Improvement in constipation with creation of presumed colostomy in the central anterior abdominal wall as above. Urostomy unchanged. 3. No small bowel obstruction. Trace free fluid. No free air. Adelso Hatfield MD Caprini VTE Risk Assessment Caprini VTE Risk Assessment: Mod/High Risk (score >= 2) Caprini Risk Assessment Model Point Value = 1 Point Value = 2 Point Value = 3 Point Value = 5 Age 41-60 Minor surgery BMI > 25 kg/m2 Swollen legs Varicose veins or History of unexplained or recurrent spontaneous Oral contraceptives or hormone replacement Sepsis (< 1 month) Serious lung disease, including pneumonia (< 1 month) Abnormal pulmonary function Acute myocardial infarction Congestive heart failure (< 1 month) History of inflammatory bowel disease Medical patient at bed rest Age 61-74 Arthroscopic surgery Major open surgery (> 45 min) Laparoscopic surgery (> 45 min) Malignancy Confined to bed (> 72 hours) Immobilizing plaster cast Central venous access Age >= 75 History of VTE Family history of VTE Factor V Leiden Prothrombin [id number] Lupus anticoagulant Anticardiolipin antibodies Elevated serum homocysteine Heparin-induced thrombocytopenia Other congenital or acquired thrombophilia Stroke (< 1 month) Elective arthroplasty Hip, pelvis, or leg fracture Acute spinal cord injury (< 1 month) Prophylaxis Regimen Total Risk Factor Score Risk Level Prophylaxis Regimen 0-1 Low Early ambulation 2 Moderate Order ONE of the following: *Sequential Compression Device (SCD) *Heparin 5000 units SQ BID 3-4 Higher Order ONE of the following medications: *Heparin 5000 units SQ TID *Enoxaparin/Lovenox 40 mg SQ daily (WT < 150 kg, CrCl > 30 mL/min) *Enoxaparin/Lovenox 30 mg SQ daily (WT < 150 kg, CrCl > 10-29 mL/min) *Enoxaparin/Lovenox 30 mg SQ BID (WT < 150 kg, CrCl > 30 mL/min) AND/OR *Sequential Compression Device (SCD) 5 or more Highest Order ONE of the following medications: *Heparin 5000 units SQ TID (Preferred with Epidurals) *Enoxaparin/Lovenox 40 mg SQ daily (WT < 150 kg, CrCl > 30 mL/min) *Enoxaparin/Lovenox 30 mg SQ daily (WT < 150 kg, CrCl > 10-29 mL/min) *Enoxaparin/Lovenox 30 mg SQ BID (WT < 150 kg, CrCl > 30 mL/min) AND *Sequential Compression Device (SCD) Assessment and Plan Assessment and Plan Impression: Generalized weakness Generalized pain Anorexia Anxiety Possible diarrhea Leukocytosis. Stable from discharge date. prostate cancer 3 yrs ago - s/p prostatectomy and radiation bladder cancer 1 yr ago s/p cystectomy and chemotherapy- last dose 3 weeks ago htn dm afib Plan: Physical therapy evaluation. Start patient on anxiety medication with Xanax 0.125 mg by mouth every 8 hours when necessary. Pain control with oxycodone 5 mg by mouth every 4 hours when necessary. Patient will likely need increased dosing. However at this point we will cautious and see how he responds first. Palliative care consult. Patient is interested in hospice care at [place] if possible. However we would still need to clarify the goals of care by palliative care team. It seems that patient's /life partner is not very much involved in his medical care. For example, she cannot recall the name of his oncologist. She does not know his medications. Will follow up C. difficile studies. We'll monitor for evidence of diarrhea. Per patient, he was having diarrhea per rectum. However he has not changed his colostomy bag nor emptied it since discharge on September 29, 2017. Therefore question whether he truly is having diarrhea or not. Patient's will bring medications bottles in the morning. Nursing orders have been written to update the med reconciliation when she brings the bottles. We'll monitor fingersticks. No sliding scale coverage yet since patient is likely not can be eating much. DVT prophylaxis with Lovenox. Patient likely is on chronic anticoagulation at home. We'll need to restart this once we know the medications Discussed Condition With patient, ER , nursing staff, at bedside Eliza Frazier MD Oct 04, 2017 14:04
[2017-10-04] MEDS: ALPRAZolam 0.25 MG TAB PO PRN ×2 (14:52→18:44)
--- NOTE | 2017-10-04 16:58 | PD.CONS ---
Consult Service Palliative Care . Consult Requested By Dr. Kristal Tsang . Primary Care Physician Sandor Atkins M.D. . Reason for Consultation a. To assist with evaluation and management of symptoms including: abdominal pain; diarrhea; anxiety; depression; generalized weakness b. To assist medical decision maker(s) with: better understanding of current medical conditions; weighing benefits/burdens of medical treatment options; making medical treatment decisions. HPI History of Present Illness Mr. Foley in an unfortunate 77 y/o [employer] with a 4 year history of bladder cancer now s/p cystectomy and urostomy who came to the ED on 10/04 17 complaining of abdominal pain and generalized weakness. The patient had been hospitalized here from 09/26/17 - 09/29/17 for a bowel obstruction secondary to a pelvic mass presumably related to his bladder cancer. He underwent a diverting colostomy on 09/26/17. The patient reports that he has been stooling both via his colostomy bag and rectally since discharge. He is incontinent of stool via the rectum and seems to have uncontrollable loose stools rectally following any food by mouth. This has cause both discomfort and humiliation and stress for his significant other. The patient also reports growing progressively weak to the point where he was having difficutly walking around his home. Mr. Foley had his cystectomy at the [facility] . He is followed locally for oncology care by Dr. Martino. He understand he has Stage IV bladder cancer. He last underwent chemotherapy about 3 weeks ago but does not recall the chemo. He reports he has not had kaye talks with Dr. Martino about his prognosis but the patient says, "I have Stage IV cancer and I know I am dying." When I ask if Dr. Martino has any additional treatment plans for him, he says, "He might have but I think I am too weak to undergo them. I'm finished." The patient has been complaining of generalized abdominal pain. He had abdominal pain before the surgery and it has increased since. It is helped by his oxycodone. he uses about two pills per day. He denies nausea/vomiting. He complains of significant anxiety. He says he is not receiving any medication for this symptom. He reports an unknown amount of weight loss. He reports weight loss is accelerating as he is avoiding food to prevent the diarrhea. . Function/Cognitive Trajectory In spite of his advanced cancer, patient had been fully ambulatory, getting out of the house, driving, and taking care of ADLs prior to the development of his bowel obstruction. He has been quite weak since and has had difficutly even walking around the house since last hospital discharge a few days ago. . Review of Systems Constitutional: COMPLAINS OF: Fatigue, Weight loss, Change in appetite, Pain, Generalized weakness, DENIES: Fever, Chills, Dizziness Eyes: COMPLAINS OF: Vision loss Ears, nose, mouth, throat: DENIES: Hearing loss, Throat pain, Epistaxis Respiratory: COMPLAINS OF: Cough, Shortness of breath, DENIES: Apneas, Wheezing , Hemoptysis Cardiovascular: COMPLAINS OF: Chest pain, Dyspnea on Exertion, DENIES: Palpitations, Syncope Gastrointestinal: COMPLAINS OF: Abdominal pain, Diarrhea, DENIES: Bloody stools , Nausea, Vomiting, Difficulty Swallowing, Anorexia, Vomiting blood Musculoskeletal: DENIES: Joint pain, Muscle aches, Back pain Neurologic: DENIES: Abnormal gait, Localized weakness, Seizures, Poor Balance Psychiatric: COMPLAINS OF: Anxiety, Depression Past Family Social History Coded Allergies: No Known Allergies (Unverified , 10/04/17) Past Medical History prostate cancer 3 yrs ago - s/p prostatectomy and radiation bladder cancer 1 yr ago s/p cystectomy and chemotherapy- last dose 3 weeks ago htn dm afib Past Surgical History chidlhood tonsillectomy prostatectomy cystectomy with urostomy bowel resection with diveriting colostomy placement . Reported Medications Pre-hospital medications included: Hydrocodone/acetaminophen 5/325 1 po q 4 hours prn pain Megesterol 800 mg/20 ml 800 mg PO daily. . Current Medications Medications (Trade) Dose Ordered Sig/Lydia Route Start Time Stop Time Status Last Admin (NS Flush) 2 ml UNSCH PRN IV FLUSH 10/04/17 13:30 (NS Flush) 2 ml BID IV FLUSH 10/04/17 21:00 (Zofran Inj) 4 mg Q6H PRN IVP 10/04/17 13:30 (Narcan Inj) 0.4 mg UNSCH PRN IV PUSH 10/04/17 13:30 (Xanax) 0.125 mg Q4H PRN PO 10/04/17 14:15 10/04/17 14:52 (Roxicodone Intensol Liq) 5 mg Q4H PRN PO 10/04/17 14:15 (Lovenox Inj) 40 mg Q24H SQ 10/05/17 09:00 . Family History Father of unknown causes Mother at age 91 of Alzheimers disease He has a sister who is alive and well. . Substance Use Tobacco: 20 year history of smoking. Quit 1984 Alcohol: No history of abuse Prescription med abuse: No history of abuse Illicits: No known use of illicits. ./ Psychosocial History Originally from [place] Completed two years of college. Served in the [employer] Worked for [email or web address] Never . No children. Has long-term significant other -- Glenda Sheppard -- who he elects to serve as his health care surrogate. . Spiritual/Cultural Factors [employer] and spirituality have not played an important role in his life. 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 . . Living Will: Never completed Health Care Surrogate: Never completed Durable Power of [employer]: Never completed Date completed: Advance directive has not been completed. . Health Care Surrogate(s): No written designation of health care surrogate but has verbally selected his "girlfriend" -- Glenda Sheppard. . Documented care wishes: No written documentation of health care preferences/wishes. . Today's verbally stated goals: Patient has verbally stated he desires DNR status. He does not want to pursue further cancer directed treatments and wants to speak with hospice about transitioning to "comfort measures only." . Family/friends goals: Girlfriend is present during our conversation and is supportive of patient's expressed goals. . Ethical and Legal Issues Patient is capacitated to make his own health care decisions. No known legal/ ethical issues at this time. . Physical Exam Vital Signs Date Time Temp Pulse Resp B/P (MAP) Pulse Ox O2 Delivery O2 Flow Rate FiO2 10/04/17 16:00 96.7 90 18 142/63 (89) 100 10/04/17 13:56 101 14 130/64 (86) 99 Nasal Cannula 2.00 10/04/17 13:55 101 15 130/64 (86) 99 Nasal Cannula 2.00 10/04/17 10:48 91 20 124/70 (88) 97 Room Air 10/04/17 10:17 98.3 113 20 125/70 (88) 99 Room Air 10/04/17 10:17 113 99 Room Air 10/04/17 10:14 98.3 110 20 125/70 (88) 98 Room Air 10/04/17 10:14 97 Room Air 10/04/17 10:08 98.3 108 20 125/70 (88) 98 . 10/04/17 10/05/17 19:00 07:00 Intake Total 2000 ml Balance 2000 ml Intake IV Total 2000 ml . Exam CONSTITUTIONAL/GENERAL: This is an adequately nourished patient. He appears fed up but not in pain. He is cooperative, verbal. TUBES/LINES/DRAINS: Peripheral IVs; urostomy; colostomy. SKIN: No jaundice, rashes, or lesions. No wounds seen anteriorly. Skin temperature appropriate. Not diaphoretic. Colostomy wound appears well healed. HEAD: Atraumatic. Normocephalic. EYES: Pupils equal and round and reactive. Extraocular motions intact. No scleral icterus. No injection or drainage. Fundi not examined. ENT: Hearing grossly normal. Nose without bleeding or purulent drainage. Throat without visible erythema, exudates, masses, or lesions. NECK: Trachea midline. Supple, nontender. No palpable thyroid enlargement or nodularity. CARDIOVASCULAR: Regular rate and rhythm without murmurs, gallops, or rubs. No JVD. Peripheral pulses symmetric. RESPIRATORY/CHEST: Symmetric, unlabored respirations. Clear to auscultation. Breath sounds equal bilaterally. No wheezes, rales, or rhonchi. GASTROINTESTINAL: Abdomen soft,nondistended. Diffuse mild to moderate tenderness to palpation across abdomen. Colostomy and urostomy bags present with stool and urine present respectively. No hepato-splenomegaly, or palpable masses. No guarding. Bowel sounds present. GENITOURINARY: Urostomy bag with urine is present. MUSCULOSKELETAL: Extremities without clubbing, cyanosis, or edema. No joint tenderness or effusion noted. No calf tenderness. No mottling. LYMPHATICS: No palpable cervical or supraclavicular adenopathy. NEUROLOGICAL: Awake and alert. Motor and sensory grossly within normal limits. Follows commands. Cognitively sharp. Moves all extremities. PSYCHIATRIC: Self-reports anxiety. no apparent hallucinations or other psychotic thought process. . Diagnostic Tests Laboratory Laboratory Tests Test 10/04/17 10:20 White Blood Count 17.5 TH/MM3 (4.0-11.0) Red Blood Count 4.08 MIL/MM3 (4.50-5.90) Hemoglobin 11.7 GM/DL (13.0-17.0) Hematocrit 36.8 % (39.0-51.0) Mean Corpuscular Volume 90.2 FL (80.0-100.0) Mean Corpuscular Hemoglobin 28.5 PG (27.0-34.0) Mean Corpuscular Hemoglobin Concent 31.7 % (32.0-36.0) Red Cell Distribution Width 16.7 % (11.6-17.2) Platelet Count 536 TH/MM3 (150-450) Mean Platelet Volume 6.7 FL (7.0-11.0) Neutrophils (%) (Auto) 86.5 % (16.0-70.0) Lymphocytes (%) (Auto) 6.5 % (9.0-44.0) Monocytes (%) (Auto) 5.1 % (0.0-8.0) Eosinophils (%) (Auto) 1.4 % (0.0-4.0) Basophils (%) (Auto) 0.5 % (0.0-2.0) Neutrophils # (Auto) 15.1 TH/MM3 (1.8-7.7) Lymphocytes # (Auto) 1.1 TH/MM3 (1.0-4.8) Monocytes # (Auto) 0.9 TH/MM3 (0-0.9) Eosinophils # (Auto) 0.2 TH/MM3 (0-0.4) Basophils # (Auto) 0.1 TH/MM3 (0-0.2) CBC Comment DIFF FINAL Differential Comment Prothrombin Time 10.7 SEC (9.8-11.6) Prothromb Time International Ratio 1.1 RATIO Activated Partial Thromboplast Time 20.8 SEC (24.3-30.1) Blood Urea Nitrogen 25 MG/DL (7-18) Creatinine 1.37 MG/DL (0.60-1.30) Random Glucose 130 MG/DL (74-106) Total Protein 8.4 GM/DL (6.4-8.2) Albumin 3.4 GM/DL (3.4-5.0) Calcium Level 10.0 MG/DL (8.5-10.1) Magnesium Level 2.1 MG/DL (1.5-2.5) Alkaline Phosphatase 60 U/L (45-117) Aspartate Amino Transf (AST/SGOT) 30 U/L (15-37) Alanine Aminotransferase (ALT/SGPT) 76 U/L (12-78) Total Bilirubin 0.3 MG/DL (0.2-1.0) Sodium Level 139 MEQ/L (136-145) Potassium Level 4.8 MEQ/L (3.5-5.1) Chloride Level 110 MEQ/L (98-107) Carbon Dioxide Level 20.4 MEQ/L (21.0-32.0) Anion Gap 9 MEQ/L (5-15) Estimat Glomerular Filtration Rate 51 ML/MIN (>89) Lactic Acid Level 1.9 mmol/L (0.4-2.0) Troponin I LESS THAN 0.02 NG/ML . Result Diagram: 10/04/17 1020 10/04/17 1020 Microbiology Microbiology Date/Time Source Procedure Growth Status 10/04/17 10:27 Blood Peripheral Aerobic Blood Culture Pending Received 10/04/17 10:27 Blood Peripheral Anaerobic Blood Culture Pending Received 10/04/17 10:20 Blood Peripheral Aerobic Blood Culture Pending Received 10/04/17 10:20 Blood Peripheral Anaerobic Blood Culture Pending Received Imaging Last Impressions Chest X-Ray 10/04/17 1009 Signed Impressions: Service Date/Time: Wednesday, October 04, 2017 10:18 - CONCLUSION: 1. No acute cardiopulmonary disease. Bharathi Suarez MD Abdomen/Pelvis CT 10/04/17 1009 Signed Impressions: Service Date/Time: Wednesday, October 04, 2017 11:52 - CONCLUSION: 1. Necrotic appearing pelvic mass measuring up to 7.5 cm in diameter similar to September 26. 2. Improvement in constipation with creation of presumed colostomy in the central anterior abdominal wall as above. Urostomy unchanged. 3. No small bowel obstruction. Trace free fluid. No free air. Adelso Hatfield MD . Patient/Family Conference Present at Family Conference: Patient; patient's partner -- Glenda Sheppard. . Family Conference Time (mins): 50 Family Conference Location: Bedside Issues Discussed: * Palliative care role, purpose, approach * Additional medical, psychosocial, and spiritual history * Patients general health, functional status, and cognitive changes in the months leading up to the current hospitalization * Patient/family understanding of the current medical problems * Patient/family understanding of prognosis * Patients goals of medical treatment. * Current medical treatment options and benefits/burdens of those options * Likely scenarios comparing ongoing aggressive care with a transition to comfort measures only * Questions answered to the best of my ability . Assessment and Plan Disease Oriented Problem List: (1) Bladder cancer Comment: Reportedly Stage IV. S/p cystectomy, urostomy, and has had chemo. Has large pelvic mass. . (2) Hypertension (3) Diabetes mellitus (4) Atrial fibrillation (5) Prostate cancer Comment: s/p prostatectomy and radiation -- not active. . Symptom Scale: (1) Abdominal pain 0-10 Scale: Unable to quantify Comment: Has generalized abdominal pain. Improves with opiates. . (2) Anxiety 0-10 Scale: Unable to quantify (3) Generalized weakness 0-10 Scale: Unable to quantify (4) Depression 0-10 Scale: Unable to quantify Pertinent Non-Medical Issues Psychosocial: Never ; no children; lives with significant other. Spiritual: Not an important part of his life. Legal: No advance directive. Ethical issues impacting care: Patient is capacitated. . Important Contacts * Glenda Sheppard (significant other and patient has verbally designated her as his health care surrogate) [phone]; C: [phone] . Prognosis Life expectancy is uncertain -- will probably have to check with Dr. Martino. Patient, however, self-reports he has Stage IV bladder cancer with a large pelvic mass that has caused a bowel obstruction requiring a diverting colostomy. He now no longer desires further cancer-directed treatments. He is reporting diarrhea, weight loss, and increasing generalized fatigue. Life expectancy is most likely in the order of weeks to months. Patient would be hospice eligible if he continues to desire "comfort measures only." . Code Status: No Code Plan == Code Status : NO CODE. Patient expressed desire NOT to be resuscitated in conversation with Dr. Suarez in presence of his significant other -- Glenda Sheppard -- on 10/04/17. == Decision Making: Patient is currently capacitated to make his own health care decisions. Should he become incapacitated , he has stated he wants his significant other -- Glenda Sheppard -- to be his health care surrogate. == Goals of medical treatment: Patient has indicated that he wants to see if there is way to control his bowel incontinence and ongoing diarrhea which are occurring in spite of his colostomy. He has also indicated that he wants no more cancer directed treatments and that he wants to transition to "comfort measures only." He has specifically requested a hospice consultation. == Symptoms: * Abdominal pain: He complains of generalized abdominal pain that he has difficulty describing. It is present all the time but partially controlled with his opiates. He has had pain before his recent surgery for bowel obstruction but pain is worse since. Will titrate opiates as needed. * Diarrhea -- patient passes stool both rectally and into his bag. He is incontinent rectally and has diarrhea shortly after eating everything. This is his most prominent complaint. Recommend we check with general surgery to see if this is just the distal colon emptying out or if there are other measures we can take to provide the patient with relief from the rectal incontinence. * Generalized weakness -- He has become weaker over the last weeks. He is having difficulty even getting around his home. * Anxiety: He reports this is a longstanding problem. He has not been on anti- anxiety medications at home but believes he needs some. Currently started on Alprazolam here which is appropriate. Will titrate as needed. == May want to consult general surgery to see if they have recommendations regarding the patient's rectal incontinence and ongoing diarrhea which is the patient's most pressing symptom. Dr. José performed the operation on . == Hospice consult has been placed. If patient continues to desire hospice care, will plan on enrolling him once we have a plan to best mitigate the diarrhea/rectal incontinence. == Palliative care will assist patient to complete an advance directive. == Palliative care will continue to follow to assist with symptom management and to further clarify goals of medical treatment as the clinical course evolves. . Time Spent Total Floor Time (mins): 80 (Total time included chart review, patient exam, above referenced bedside family meeting, and documentation. ) Face to Face Time (mins): 60 >50% Counseling/Coord of Care: Yes Thank you for the opportunity to participate in the care of Mr. Foley. . Attestation To help prompt me to consider important information that might be impacting today's encounter and assessment, information from prior notes written by myself or my colleagues may have been "brought forward" into today's note. My signature on this note, however, is an attestation that I personally performed the exam, history, and/or decision-making noted today, and, unless otherwise indicated, the interactions with patient, family, and staff as well as the review of records all occurred today. I also attest that the listed assessment and stated plan reflect my best clinical judgment today based on the combination of historical information, prior notes, and today's exam/ interactions. When time spent is documented, it refers only to time spent today by the signer, or if indicated, combined time spent today by collaborating physician/nurse practitioner. . Javan Suarez MD Oct 04, 2017 16:58
[2017-10-04] MEDS: oxyCODONE HCL ORAL CONC 5 MG/0.25 ML SYRINGE PO PRN ×2 (17:11→21:31)
[2017-10-04] MEDS: SODIUM CHLORIDE 0.9% FLUSH 10 ML FLUSH IV FLUSH SCH (20:59)
[2017-10-04] MEDS ORDERED: DEXTROSE 50% IN WATER 50 ML VIAL(D50) IV PUSH PRN (22:15)
[2017-10-04] MEDS ORDERED: GLUCAGON 1 MG/ML VIAL OTHER PRN (22:15)
[2017-10-05] VITALS: BP 127/63; PULSE 97; RESP 20; TEMP 96.9; O2SAT 98
[2017-10-05] MEDS: ALPRAZolam 0.25 MG TAB PO PRN ×5 (00:13→22:40)
[2017-10-05 04:00] VITALS: BP 125/67; PULSE 100; RESP 26; TEMP 96.5; O2SAT 98
[2017-10-05] MEDS: oxyCODONE HCL ORAL CONC 5 MG/0.25 ML SYRINGE PO PRN ×5 (05:45→22:39)
[2017-10-05 08:00] VITALS: BP 129/77; PULSE 92; RESP 22; TEMP 97.4; O2SAT 96
[2017-10-05 08:09] LABS: AUTOMATED NEUTROPHIL # 11.5 TH/MM3 (1.8-7.7); BASOPHIL # 0.1 TH/MM3 (0-0.2); BASOPHIL % 0.5 % (0.0-2.0); EOSINOPHIL # 0.3 TH/MM3 (0-0.4); EOSINOPHIL % 1.9 % (0.0-4.0); HEMATOCRIT 30.4 % (39.0-51.0); HEMOGLOBIN 10.2 GM/DL (13.0-17.0); LYMPH % 10.8 % (9.0-44.0); LYMPHOCYTE # 1.6 TH/MM3 (1.0-4.8); MEAN CELL VOLUME 89.2 FL (80.0-100.0); MEAN CORPUSCULAR HEMOGLOBIN 29.8 PG (27.0-34.0); MEAN CORPUSCULAR HGB CONC 33.4 % (32.0-36.0); MONO % 7.1 % (0.0-8.0); NEUT % 79.7 % (16.0-70.0); PLATELET COUNT 476 TH/MM3 (150-450); RED BLOOD COUNT 3.41 MIL/MM3 (4.50-5.90); RED CELL DISTRIBUTION WIDTH 16.8 % (11.6-17.2); WHITE BLOOD COUNT 14.5 TH/MM3 (4.0-11.0)
[2017-10-05] MEDS: SODIUM CHLORIDE 0.9% FLUSH 10 ML FLUSH IV FLUSH SCH (08:24)
[2017-10-05] MEDS: ENOXAPARIN SODIUM 40 MG/0.4 ML SYRINGE SQ SCH (08:25)
--- NOTE | 2017-10-05 09:32 | HHI.PR ---
Subjective Remarks Follow-up for diarrhea and uncontrolled pain Two bowel movements have been documented since patient was hospitalized. Stated that pain continues to be uncontrolled in the lower abdomen/suprapubic area. Deny any nausea vomiting. Patient stated that since he left the hospital he just kept on getting weaker and weaker. He stated that he has not eaten anything since discharge due to fatigue and weakness. Objective Vitals Vital Signs Date Time Temp Pulse Resp B/P (MAP) Pulse Ox O2 Delivery O2 Flow Rate FiO2 10/05/17 08:00 97.4 92 22 129/77 (94) 96 10/05/17 04:00 96.5 100 26 125/67 (86) 98 10/05/17 00:00 96.9 97 20 127/63 (84) 98 10/04/17 20:00 95.7 97 20 129/60 (83) 99 10/04/17 16:00 96.7 90 18 142/63 (89) 100 10/04/17 13:56 101 14 130/64 (86) 99 Nasal Cannula 2.00 10/04/17 13:55 101 15 130/64 (86) 99 Nasal Cannula 2.00 10/04/17 10:48 91 20 124/70 (88) 97 Room Air 10/04/17 10:17 98.3 113 20 125/70 (88) 99 Room Air 10/04/17 10:17 113 99 Room Air 10/04/17 10:14 98.3 110 20 125/70 (88) 98 Room Air 10/04/17 10:14 97 Room Air 10/04/17 10:08 98.3 108 20 125/70 (88) 98 I/O 10/04/17 10/04/17 10/04/17 10/05/17 10/05/17 10/05/17 07:00 15:00 23:00 07:00 15:00 23:00 Intake Total 2000 ml 1200 ml 300 ml 120 ml Output Total 1100 ml 1000 ml Balance 2000 ml 100 ml -700 ml 120 ml Intake Oral 1200 ml 300 ml 120 ml IV Total 2000 ml Output Urine Total 1100 ml 1000 ml Stool Total 0 ml # Bowel Movements 2 Result Diagram: 10/05/17 0704 10/04/17 1020 Objective Remarks GENERAL: in NAD CARDIOVASCULAR: Regular rate and rhythm without murmurs, gallops, or rubs. RESPIRATORY: Breath sounds equal bilaterally. No accessory muscle use. GASTROINTESTINAL: Abdomen soft and nondistended. Ostomy in place. + TTP in lower abdomen. MUSCULOSKELETAL: No cyanosis, or edema. BACK: Nontender without obvious deformity. No CVA tenderness. Medications and IVs Current Medications Sodium Chloride 1,000 ml @ 2,000 mls/hr Q30M ONCE IV Last administered on at 10:32; Start 10/04/17 at 10:15; Stop 10/04/17 at 10:51; Status DC Morphine Sulfate (Morphine Inj) 4 mg ONCE ONCE IV PUSH ; Start 10/04/17 at 11:15 ; Stop 10/04/17 at 11:16; Status Cancel Iohexol (Omnipaque 350 Inj) 94 ml STK-MED ONCE IVCONTRAST Last administered on 10/04/17at 12:29; Start 10/04/17 at 12:29; Stop 10/04/17 at 12:30; Status DC Morphine Sulfate (Morphine Inj) 4 mg ONCE ONCE IV PUSH ; Start 10/04/17 at 13:15 ; Stop 10/04/17 at 13:16; Status DC Hydromorphone HCl (Dilaudid Pf Inj) 0.5 mg ONCE ONCE IVS ; Start 10/04/17 at 13: 15; Stop 10/04/17 at 13:16; Status DC Sodium Chloride (NS Flush) 2 ml UNSCH PRN IV FLUSH FLUSH AFTER USING IV ACCESS ; Start 10/04/17 at 13:30 Sodium Chloride (NS Flush) 2 ml BID IV FLUSH Last administered on 10/05/17at 08: 24; Start 10/04/17 at 21:00 Ondansetron HCl (Zofran Inj) 4 mg Q6H PRN IVP NAUSEA OR VOMITING; Start at 13:30 Naloxone HCl (Narcan Inj) 0.4 mg UNSCH PRN IV PUSH SEE LABEL COMMENTS; Start at 13:30 Alprazolam (Xanax) 0.125 mg Q4H PRN PO anxiety Last administered on 10/05/17at 05 :45; Start 10/04/17 at 14:15 Oxycodone HCl (Roxicodone Intensol Liq) 5 mg Q4H PRN PO pain >5 Last administered on 10/05/17at 05:45; Start 10/04/17 at 14:15 Enoxaparin Sodium (Lovenox Inj) 40 mg Q24H SQ Last administered on 10/05/17at 08: 25; Start 10/05/17 at 09:00 Dextrose (D50w (Vial) Inj) 50 ml UNSCH PRN IV PUSH HYPOGLYCEMIA-SEE COMMENTS; Start 10/04/17 at 22:15 Glucagon (Glucagon Inj) 1 mg UNSCH PRN OTHER HYPOGLYCEMIA-SEE COMMENTS; Start 10/04/17 at 22:15 A/P Assessment and Plan Impression: Generalized weakness -This is most likely secondary to stage IV bladder cancer. Per patient he continues to have a pelvic mass. Palliative care on board. Patient may want hospice. Due to disease process most likely patient will only deteriorate. Very poor prognosis. -Consult physical therapist. Stage IV bladder cancer -Per palliative care patient no longer desires further cancer-directed treatments. -Per palliative care will confirm this with his oncologist. Patient most likely qualifies for hospice. Intractable pain -Most likely secondary to pelvic mass. Will add Oramorph. Continue with Roxycodone when necessary. Recent admission due to large bowel obstruction status post ostomy -Patient continues to complain of diarrhea. C. difficile PCR ordered but has not been obtained most likely stool sample not sufficient. Unlikely that this is infectious. Consulted general surgeon. Anxiety -Patient was started on Xanax. DVT prophylaxis with Lovenox. Pending updated med rec. Karley Cavanaugh MD Oct 05, 2017 09:32
[2017-10-05] MEDS: MORPHINE SULFATE 15 MG CONTROLLED RELEASE TAB PO SCH ×2 (10:29→22:43)
[2017-10-05 11:34] VITALS: BP 118/75; PULSE 60; RESP 19; TEMP 98.7; O2SAT 99
--- NOTE | 2017-10-05 14:40 | PD.CONS ---
cc: Adelso José MD [facility] Service Consultation NOTE FOR SURGICAL ATTENDING, DR. ADELSO JOSÉ General Surgery Consult Requested By Dr. Cavanaugh Reason for Consult S/p bowel obstruction with diverting colostomy Primary Care Physician Sandor Atkins M.D. History of Present Illness This is a 77-year-old male with a past medical history of age for bladder cancer , prostate cancer, bladder resection and urostomy. He arrived to the emergency department on September 26, 2017 with complaints of abdominal pain. A CT abdomen and pelvis was completed which shows a distal colon tumor. A diverting colostomy was created. Prior to discharge the patient had stool from his colostomy and was able tolerate regular diet. The patient is back with severe abdominal pain and rectal incontinence. Review of Systems Constitutional: COMPLAINS OF: Change in appetite, DENIES: Fatigue Endocrine: DENIES: Polydipsia, Polyuria, Polyphagia Eyes: DENIES: Diplopia Ears, nose, mouth, throat: DENIES: Hearing loss Respiratory: DENIES: Cough Cardiovascular: DENIES: Palpitations Gastrointestinal: COMPLAINS OF: Abdominal pain, Diarrhea Genitourinary: DENIES: Urinary incontinence Musculoskeletal: DENIES: Muscle aches Integumentary: DENIES: Abnormal pigmentation Hematologic/lymphatic: DENIES: Bruising Neurologic: DENIES: Headache, Localized weakness Psychiatric: DENIES: Confusion, Mood changes, Depression Past Family Social History Past Medical History Stage IV bladder cancer Prostate cancer Past Surgical History Status post bladder resection with urostomy Diverting colostomy--- September 26, 2017 Reported Medications Lortab Megestrol Allergies: Coded Allergies: No Known Allergies (Unverified , 10/04/17) Active Ordered Medications Current Medications Medications (Trade) Dose Ordered Sig/Lydia Route Start Time Stop Time Status Last Admin (NS Flush) 2 ml UNSCH PRN IV FLUSH 10/04/17 13:30 (NS Flush) 2 ml BID IV FLUSH 10/04/17 21:00 10/05/17 08:24 (Zofran Inj) 4 mg Q6H PRN IVP 10/04/17 13:30 (Narcan Inj) 0.4 mg UNSCH PRN IV PUSH 10/04/17 13:30 (Xanax) 0.125 mg Q4H PRN PO 10/04/17 14:15 10/05/17 10:26 (Lovenox Inj) 40 mg Q24H SQ 10/05/17 09:00 10/05/17 08:25 (D50w (Vial) Inj) 50 ml UNSCH PRN IV PUSH 10/04/17 22:15 (Glucagon Inj) 1 mg UNSCH PRN OTHER 10/04/17 22:15 (Oramorph Sr) 15 mg Q12HR PO 10/05/17 09:30 10/05/17 10:29 (Roxicodone Intensol Liq) 10 mg Q4H PRN PO 10/05/17 14:15 Family History Noncontributory Social History Denies current tobacco use Denies EtOH use Denies illicit drug use Physical Exam Vital Signs Vital Signs Date Time Temp Pulse Resp B/P (MAP) Pulse Ox O2 Delivery O2 Flow Rate FiO2 10/05/17 11:34 98.7 60 19 118/75 (89) 99 10/05/17 08:00 97.4 92 22 129/77 (94) 96 10/05/17 04:00 96.5 100 26 125/67 (86) 98 10/05/17 00:00 96.9 97 20 127/63 (84) 98 10/04/17 20:00 95.7 97 20 129/60 (83) 99 10/04/17 16:00 96.7 90 18 142/63 (89) 100 Physical Exam GENERAL: A 77-year-old male resting in bed in mild distress from pain. SKIN: Warm and dry. HEAD: Atraumatic. Normocephalic. EYES: Pupils equal and round. No scleral icterus. No injection or drainage. ENT: No nasal bleeding or discharge. Mucous membranes pink and moist. NECK: Trachea midline. CARDIOVASCULAR: Regular rate and rhythm. RESPIRATORY: No accessory muscle use. Clear to auscultation. Breath sounds equal bilaterally. GASTROINTESTINAL: Abdomen soft, nondistended. Urostomy working without complications. Colostomy working with stool in appliance; bar in place. Tenderness with palpation in pelvic region. MUSCULOSKELETAL: Extremities without clubbing, cyanosis, or edema. No obvious deformities. NEUROLOGICAL: Awake and alert. No obvious cranial nerve deficits. Motor grossly within normal limits. Five out of 5 muscle strength in the arms and legs. Normal speech. PSYCHIATRIC: Appropriate mood and affect; insight and judgment normal. Laboratory Laboratory Tests Test 10/05/17 07:04 White Blood Count 14.5 Red Blood Count 3.41 Hemoglobin 10.2 Hematocrit 30.4 Mean Corpuscular Volume 89.2 Mean Corpuscular Hemoglobin 29.8 Mean Corpuscular Hemoglobin Concent 33.4 Red Cell Distribution Width 16.8 Platelet Count 476 Mean Platelet Volume 7.0 Neutrophils (%) (Auto) 79.7 Lymphocytes (%) (Auto) 10.8 Monocytes (%) (Auto) 7.1 Eosinophils (%) (Auto) 1.9 Basophils (%) (Auto) 0.5 Neutrophils # (Auto) 11.5 Lymphocytes # (Auto) 1.6 Monocytes # (Auto) 1.0 Eosinophils # (Auto) 0.3 Basophils # (Auto) 0.1 CBC Comment DIFF FINAL Differential Comment Date/Time Source Procedure Growth Status 10/04/17 10:27 Blood Peripheral Aerobic Blood Culture - Preliminary NO GROWTH IN 1 DAY Resulted 10/04/17 10:27 Blood Peripheral Anaerobic Blood Culture - Preliminary NO GROWTH IN 1 DAY Resulted Result Diagram: 10/05/17 0704 10/04/17 1020 Imaging Last 48 hours Impressions Chest X-Ray 10/04/17 1009 Signed Impressions: Service Date/Time: Wednesday, October 04, 2017 10:18 - CONCLUSION: 1. No acute cardiopulmonary disease. Bharathi Suarez MD Abdomen/Pelvis CT 10/04/17 1009 Signed Impressions: Service Date/Time: Wednesday, October 04, 2017 11:52 - CONCLUSION: 1. Necrotic appearing pelvic mass measuring up to 7.5 cm in diameter similar to September 26. 2. Improvement in constipation with creation of presumed colostomy in the central anterior abdominal wall as above. Urostomy unchanged. 3. No small bowel obstruction. Trace free fluid. No free air. Adelso Hatfield MD Assessment and Plan Assessment and Plan 77 year old male s/p diverting colostomy; rectal incontinence; severe abdominal pain; large pelvic tumor -Discussion with patient and family at bedside---patient is not a surgical candidate -Would recommend pain control---I have ordered IV morphine for breakthrough pain -Diet as tolerated -At time of exam the patient has elected for Hospice Care for comfort measures -I have discussed with the patient that options included home with Hospice vs Care Center with Hospice -I notified Susu NICOLAS with Case Management of the family's decision and she will contact Hospice Discussed Condition With Dr. Arnav Delgado Attending Statement NOTE FOR SURGICAL ATTENDING, DR. ADELSO JOSÉ Patient seen Discussed with Dr. Suarez Discussed with family at bedside May benefit from cleansing enema in distal segment Patient says he doesn't want chemotherapy anymore No surgical intervention would be beneficial at this patient I agree with above assessment and plan. The exam, history, and the medical decision-making described in the above note were completed with the assistance of the mid-level provider. I reviewed and agree with the findings presented. I attest that I had a [id number] encounter with the patient on the same day, and personally performed and documented my assessment and findings in the medical record. The following services were provided during this hospital visit: Chart data review, vital sign assessments/reviewing monitor data Review of consultations notes if present. Medication orders/review and/or management Ordering and/or reviewing lab tests Ordering and/or interpreting/reviewing x-rays and/or diagnostic studies Care of the patient and discussion of the patient with the care team Documentation time To help prompt me to consider important information that might be impacting today's encounter and assessment, information from prior notes written by myself or my colleagues may have been "brought forward/copy and pasted" into today's note. Lizzeth Faulkner Oct 05, 2017 14:40 Adelso José MD Oct 05, 2017 15:46
[2017-10-05] MEDS ORDERED: MORPHINE SULFATE 2 MG/ML INJ IV PUSH PRN (14:45)
[2017-10-05 16:00] VITALS: BP 114/64; PULSE 101; RESP 20; TEMP 97.7; O2SAT 97
[2017-10-05] MEDS ORDERED: PRED2.5T PO (16:57)
[2017-10-05] MEDS ORDERED: ASPI-183 PO (16:59)
[2017-10-05 20:00] VITALS: BP 134/69; PULSE 107; RESP 21; TEMP 97.3; O2SAT 97
[2017-10-06] VITALS: BP 128/65; PULSE 100; RESP 20; TEMP 97.5; O2SAT 99
[2017-10-06] MEDS: oxyCODONE HCL ORAL CONC 5 MG/0.25 ML SYRINGE PO PRN ×2 (02:58→08:05)
[2017-10-06] MEDS: ALPRAZolam 0.25 MG TAB PO PRN ×2 (02:58→08:04)
[2017-10-06 08:00] VITALS: BP 132/60; PULSE 102; RESP 18; TEMP 96.2; O2SAT 98
--- NOTE | 2017-10-06 10:11 | HHI.DS ---
Discharge Summary Admission Date Oct 04, 2017 at 13:30 Discharge Date: Oct 06, 2017 Admitting Diagnosis Weakness, Bladder CA, abdominal pain (1) Intractable abdominal pain ICD Code: R10.9 - Unspecified abdominal pain Diagnosis: Principal (2) Malignant neoplasm metastatic from bladder ICD Code: C67.9 - Malignant neoplasm of bladder, unspecified Diagnosis: Principal (3) S/P colostomy ICD Code: Z93.3 - Colostomy status Diagnosis: Principal Procedures see hospital course Brief History - From Admission History from patient, ER physician from patient, and review of medical records. Patient reported that he came to the hospital because he was having pain all over, and he was having loss of appetite and has not eaten since discharge from hospital. Patient denies vomiting. That did have nausea. He reports his pain is in his abdomen, his, and everywhere. He stated he was not able to get out of bed much. That he did ambulate to bathroom at home. Denies any blood in his stool or urine. Patient was discharged from our hospital on September 29, 2017 after he had colostomy for large bowel obstruction. He stated that since discharge, he has not changed his colostomy bag at all. He reports he however continued to have stool per rectum and he thinks that that was diarrhea. Reports of subjective fevers. He so far has not had any home health care nurse at home. /partner stated she is arranging it. CBC/BMP: 10/05/17 0704 10/04/17 1020 Significant Findings Laboratory Tests Test 10/04/17 10:20 10/05/17 07:04 White Blood Count 17.5 TH/MM3 (4.0-11.0) 14.5 TH/MM3 (4.0-11.0) Red Blood Count 4.08 MIL/MM3 (4.50-5.90) 3.41 MIL/MM3 (4.50-5.90) Hemoglobin 11.7 GM/DL (13.0-17.0) 10.2 GM/DL (13.0-17.0) Hematocrit 36.8 % (39.0-51.0) 30.4 % (39.0-51.0) Mean Corpuscular Hemoglobin Concent 31.7 % (32.0-36.0) Platelet Count 536 TH/MM3 (150-450) 476 TH/MM3 (150-450) Mean Platelet Volume 6.7 FL (7.0-11.0) Neutrophils (%) (Auto) 86.5 % (16.0-70.0) 79.7 % (16.0-70.0) Lymphocytes (%) (Auto) 6.5 % (9.0-44.0) Neutrophils # (Auto) 15.1 TH/MM3 (1.8-7.7) 11.5 TH/MM3 (1.8-7.7) Activated Partial Thromboplast Time 20.8 SEC (24.3-30.1) Blood Urea Nitrogen 25 MG/DL (7-18) Creatinine 1.37 MG/DL (0.60-1.30) Random Glucose 130 MG/DL (74-106) Total Protein 8.4 GM/DL (6.4-8.2) Chloride Level 110 MEQ/L (98-107) Carbon Dioxide Level 20.4 MEQ/L (21.0-32.0) Estimat Glomerular Filtration Rate 51 ML/MIN (>89) Troponin I LESS THAN 0.02 NG/ML Monocytes # (Auto) 1.0 TH/MM3 (0-0.9) PE at Discharge GENERAL: in NAD CARDIOVASCULAR: Regular rate and rhythm without murmurs, gallops, or rubs. RESPIRATORY: Breath sounds equal bilaterally. No accessory muscle use. GASTROINTESTINAL: Abdomen soft and nondistended. Ostomy in place. + TTP in lower abdomen. MUSCULOSKELETAL: No cyanosis, or edema. BACK: Nontender without obvious deformity. No CVA tenderness. Pt update on day of discharge f/u for pain and hospice placement patient had no complaints. He asked for nurse to come back in to give pain medication. patient schedule for transportation to hospice at 12 noon. Multiple family member at bedside. Hospital Course Generalized weakness -This is most likely secondary to stage IV bladder cancer. Per patient he continues to have a pelvic mass. Palliative care on board. Patient may want hospice. Due to disease process most likely patient will only deteriorate. Very poor prognosis. Stage IV bladder cancer -Per palliative care patient no longer desires further cancer-directed treatments. -Per palliative care will confirm this with his oncologist. Patient decides hospice. Intractable pain -Most likely secondary to pelvic mass. add Oramorph. Continue with Roxycodone when necessary. Recent admission due to large bowel obstruction status post ostomy -Patient continues to complain of diarrhea. C. difficile PCR ordered but has not been obtained most likely stool sample not sufficient. Unlikely that this is infectious. Consulted general surgeon not a surgical candidate. Anxiety -Patient was started on Xanax. Pt Condition on Discharge: Stable Discharge Disposition: Hospice/Med Facility Discharge Time: <= 30 minutes Discharge Instructions DIET: Follow Instructions for: As Tolerated, No Restrictions Activities you can perform: Regular-No Restrictions Karley Cavanaugh MD Oct 06, 2017 10:11
--- NOTE | 2017-10-06 10:59 | HHI.PR ---
cc: Chani José MD Subjective Subjective Notes DAILY PROGRESS NOTE FOR SURGICAL ATTENDING, DR. CHANI JOSÉ Pain better controlled with IV morphine added for breakthrough pain at bedside Going to [facility] today Objective Vitals/I&O Vital Signs Date Time Temp Pulse Resp B/P (MAP) Pulse Ox O2 Delivery O2 Flow Rate FiO2 10/06/17 08:00 96.2 102 18 132/60 (84) 98 10/04/17 13:56 Nasal Cannula 2.00 Labs Date/Time Source Procedure Growth Status 10/04/17 10:27 Blood Peripheral Aerobic Blood Culture - Preliminary NO GROWTH IN 1 DAY Resulted 10/04/17 10:27 Blood Peripheral Anaerobic Blood Culture - Preliminary NO GROWTH IN 1 DAY Resulted Radiology Last 48 hours Impressions Chest X-Ray 10/04/17 1009 Signed Impressions: Service Date/Time: Wednesday, October 04, 2017 10:18 - CONCLUSION: 1. No acute cardiopulmonary disease. Bharathi Suarez MD Abdomen/Pelvis CT 10/04/17 1009 Signed Impressions: Service Date/Time: Wednesday, October 04, 2017 11:52 - CONCLUSION: 1. Necrotic appearing pelvic mass measuring up to 7.5 cm in diameter similar to September 26. 2. Improvement in constipation with creation of presumed colostomy in the central anterior abdominal wall as above. Urostomy unchanged. 3. No small bowel obstruction. Trace free fluid. No free air. Chani Hatfield MD Cardiovascular: Regular Lungs: Clear Abdomen: Other (urostomy working; colostomy with stool in appliance ) Extremities: No edema A/P Assessment and Plan 77 year old male s/p diverting colostomy; pelvic mass -Now enrolled in Hospice Care -Pain control -No follow up needed in the office Attending Statement NOTE FOR SURGICAL ATTENDING, DR. CHANI JOSÉ I agree with above assessment and plan. The exam, history, and the medical decision-making described in the above note were completed with the assistance of the mid-level provider. I reviewed and agree with the findings presented. I attest that I had a [id number] encounter with the patient on the same day, and personally performed and documented my assessment and findings in the medical record. The following services were provided during this hospital visit: Chart data review, vital sign assessments/reviewing monitor data Review of consultations notes if present. Medication orders/review and/or management Ordering and/or reviewing lab tests Ordering and/or interpreting/reviewing x-rays and/or diagnostic studies Care of the patient and discussion of the patient with the care team Documentation time To help prompt me to consider important information that might be impacting today's encounter and assessment, information from prior notes written by myself or my colleagues may have been "brought forward/copy and pasted" into today's note. Lizzeth Faulkner Oct 06, 2017 10:59 Chani José MD Oct 07, 2017 10:04
[2017-10-06] MEDS: ENOXAPARIN SODIUM 40 MG/0.4 ML SYRINGE SQ SCH (11:46)
[2017-10-06] MEDS: MORPHINE SULFATE 15 MG CONTROLLED RELEASE TAB PO SCH (11:47)
--- NOTE | 2017-10-07 00:10 | EKG ---
Date Performed: 10/04/2017 Time Performed: 10:14:23 PTAGE: 77 years EKG: SINUS TACHYCARDIA LOW QRS VOLTAGE IN PRECORDIAL LEADS INCOMPLETE RIGHT BUNDLE BRANCH BLOCK ANTERIOR MYOCARDIAL INFARCTION INFERIOR MYOCARDIAL INFARCTION ABNORMAL ECG NO PREVIOUS TRACING DOCTOR: Neville Bolden Interpretating Date/Time 10/07/2017 00:09:08
== END 2017-10-06 12:19 | disposition hospice, home (50) ==
LOC: NEPC 10:00 → NEDA 13:30 → N07B 14:37
PROVIDERS: ADMIT Family Medicine; ATTEND Family Medicine
DX: C67.9 Malignant neoplasm of bladder, unspecified (principal); C61 Malignant neoplasm of prostate; D49.0 Neoplasm of unspecified behavior of digestive system; I48.91 Unspecified atrial fibrillation; I10 Essential (primary) hypertension; R32 Unspecified urinary incontinence; E11.9 Type 2 diabetes mellitus without complications; F41.8 Other specified anxiety disorders; Z79.01 Long term (current) use of anticoagulants; Z87.891 Personal history of nicotine dependence; Z90.6 Acquired absence of other parts of urinary tract; Z90.79 Acquired absence of other genital organ(s); Z93.3 Colostomy status; Z79.84 Long term (current) use of oral hypoglycemic drugs
CPT/HCPCS: 71045; 74177; 80053; 82948; 83605; 83735; 84484; 85025; 85610; 85730; 87040; 93005; 96361; 96372; 96374; 97110; 97116; 97162; 99285; G0378; G8987; G8988; J1650; J2270; J7030; Q9967